=== PATIENT | female | born 1945 | race Caucasian/White ===

== ENCOUNTER 2025-05-14 06:10 | Day surgery (SDC) | payer MEDICARE, SELFPAY ==
[2025-05-07 09:31] VITALS: BMI 25.6
[2025-05-14] VITALS (8 sets, daily range): BP systolic 108–175; BP diastolic 63–79; PULSE 51–100; RESP 14–16; TEMP 37.2; O2SAT 98–100
--- NOTE | ~2025-05-14 | XR_ITS ---
EXAM/PROCEDURE: XR fluoroscopy no charge HISTORY: DIAG/PROG SINGLE BOLUS OPIOID TRIAL COMPARISON: None available. TECHNIQUE: Fluoroscopic spot images for pain service. Fluoroscopy time: 32.6 seconds Dose: 9.30 mGy IMPRESSION: Fluoroscopic guided imaging. No radiologist present. See also procedure/operative notes for complete evaluation. Reviewed, dictated and finalized at location A. Y PAINTER HELPER IMPRESSION: Fluoroscopic guided imaging. No radiologist present. See also proce dure/operative notes for complete evaluation.
--- NOTE | 2025-05-14 06:34 | WPDHPUPDATE1 ---
History and Physical Update Update Date/Time: 05/14/25 06:34 History and Physical has been reviewed, including an updated exam of the patient. There are NO changes in the patient's condition. Risks, benefits, and alternatives have been discussed and questions answered. Patient agrees to proceed with procedure.
--- NOTE | 2025-05-14 06:34 | PM.HPGS ---
History of Present Illness History of Present Illness Consent: Risks, benefits, and alternatives have been discussed and questions answered. Patient agrees to proceed with procedure. Chief complaint: other chronic pain Narrative: Jody Spencer is a 79 year old female with chronic, recalcitrant low back and lower extremity pain secondary to lumbar spondylosis with stenosis, post-laminectomy syndrome who presents as scheduled for epidural opioid bolus trial (pain pump trial) under fluoroscopic guidance using hydromorphone. Review of Systems Review of Systems: Patient denies any new infectious, allergic, cardiopulmonary, neurologic or constitutional symptoms or changes in activity tolerance or exercise capacity including new or progressive SOB/HERNANDEZ, peripheral edema, productive cough, dysuria, nausea/vomiting, diarrhea, weight change, fevers/chills/night sweats, new or progressive neurologic deficit, cognitive or mood changes since last seen, except as documented in the HPI. All systems reviewed & are unremarkable except as noted in HPI and below PMFSH Past Medical History Medical History Osteoporosis Anemia Surgical History Surgical History Status post lumbar and lumbosacral fusion by anterior technique H/O wrist surgery History of left knee surgery Status post medial meniscus repair History of bladder surgery History of breast lump removal H/O section Endometriosis of both ovaries Family History Family History Mother Cancer Father Cancer Hypertension Grandparent Diabetes mellitus Cancer Social History Social History (Updated 04/08/25 @ 14:47 by Loli Escalante MA) Smoking status: Unknown if ever smoked Second hand tobacco smoke exposure: Yes Alcohol intake: unknown Substance use: unknown Substance use type: does not use Living arrangements: alone Spiritual care concerns: No Meds Home Medications and Allergies Home Medications ?Medication ?Instructions ?Recorded ?Confirmed ?Type ascorbic acid (vitamin C) 500 mg 500 mg PO DAILY 04/08/25 05/07/25 History capsule atenolol 25 mg tablet 12.5 mg PO DAILY 04/08/25 05/07/25 History calcium 650 mg-vitamin D3 12.5 1 tablet PO DAILY 04/08/25 05/07/25 History mcg-vitamin K 40 mcg chewable tablet celecoxib 200 mg capsule 200 mg PO DAILY 04/08/25 05/07/25 History Held on 05/07/25. Instructions: .Provider Order cholecalciferol (vitamin D3) 25 25 mcg PO DAILY 04/08/25 05/07/25 History mcg (1,000 unit) capsule glucosamine-chondroitin 250 mg-200 2 tablet PO TID 04/08/25 05/07/25 History mg tablet hydrocodone 5 mg-acetaminophen 325 1 tablet PO DAILY PRN pain 04/08/25 05/07/25 History mg tablet Held on 05/07/25. Instructions: .Provider Order latanoprost 0.005 % eye drops 1 drp ophthalmic (eye) QPM 04/08/25 05/07/25 History mecobalamin (vitamin B12) 500 mcg 500 mcg PO DAILY 04/08/25 05/07/25 History chewable tablet naloxone 4 mg/actuation nasal spray 4 mg intranasal Q2-3M PRN opioid 04/08/25 05/07/25 Rx overdose #2 ea omega-3 700 pv-toa-fgh-ala-fish 1 cap PO DAILY 04/08/25 05/07/25 History oil-flaxseed 320 mg-vit E capsule, rosuvastatin 5 mg tablet 5 mg PO DAILY 04/08/25 05/07/25 History acetaminophen 500 mg tablet 1,000 mg PO DAILY 05/07/25 05/07/25 History (Acetaminophen Extra Strength) Allergies Allergy/AdvReac Type Severity Reaction Status Date / Time adhesive tape Allergy Mild BREAK OUT Verified 05/07/25 09:24 amoxicillin Allergy Mild RASH Verified 05/07/25 09:24 Exam Narrative: The patient's physical exam is essentially unchanged from prior examination on 04/08/2025. Specifically, patient demonstrates normal lung capacity, tidal volume and respiratory rate without wheezes, crackles, rales or rubs. Heart rate and rhythm are regular without murmurs, gallops or rubs. No JVD. Pulses 2+ globally without increasing peripheral edema. AAOx3 with no evidence of confusion, intoxication or altered mental state, NC/AT without acute distress or altered consciousness. Speech, cognition, mood, insight and judgment at baseline and within normal limits. Assessment and Plan Assessment and plan (1) Lumbar post-laminectomy syndrome: Code(s): M96.1 - Postlaminectomy syndrome, not elsewhere classified Status: Acute Assessment and Plan: proceed as planned with single epidural opioid bolus trial (pain pump trial) under fluoroscopic guidance. (2) correction (current) use of opiate analgesic: Code(s): Z79.891 - correction (current) use of opiate analgesic Status: Acute (3) Chronic pain: Code(s): G89.29 - Other chronic pain Status: Acute (4) Lumbosacral spondylosis with radiculopathy: Code(s): M47.27 - Other spondylosis with radiculopathy, lumbosacral region Status: Acute
--- NOTE | 2025-05-14 06:42 | P.OP_ITS ---
Procedure Note - Detailed Date of Procedure 05/14/25 Pre-op Diagnosis other chronic pain Post-op Diagnosis Same Procedure Performed Thoracolumbar Interlaminar Epidural Needle Placement at T11-12 for Single Prognostic Epidural Bolus of Opioid Analgesic (Pump Trial) under Fluoroscopic Guidance with Contrast Control. Surgeon Axel Arceo MD Presser And Shaper Knitted Goods None. Anesthesia Local Description of Procedure INFORMED CONSENT: Risks, benefits and alternatives to the procedure were d iscussed in detail with the patient who expressed explicit understanding and consent to proceed. Patient was informed verbally and in written form regarding the risks associated with the procedure including the low risk of inadvertent dural puncture resulting in CSF leak and subsequent acute or chronic spinal headache, serious systemic or local infection requiring additional surgery, bleeding/bruising or blood clot, allergic reaction, nerve /spinal cord or organ injury resulting in temporary or permanent weakness, paralysis, numbness, pain, deformity or bowel or bladder incontinence, procedural site pain or discomfort, worsening pain and/or mobility, failure to treat and/or disfigurement, as well as the risk of opioid overdose resulting in sedation, cognitive impairment, hypoxia, coma, , or under dose causing withdrawal symptoms or untreated pain. The patient expressed explicit understanding and consent to proceed despite the potential risks with the agreement that potential benefits far outweigh potential for harm. All materials required for the procedure were available prior to procedure start. Site and side were marked prior to procedure and confirmed in the presence of the patient. PROCEDURE IN DETAIL: The patient was brought to the procedural suite and placed in the prone position. Patient was made comfortable with use of pillows under the head/chest, hips and ankles. Appropriate monitoring initiated. Skin overlying the injection site was prepared broadly with ChloraPrep applicator and draped in a sterile manner. Aseptic technique was employed throughout. The endplates of the vertebral body at the site of interest were aligned in the AP view. Slight caudal tilt and ipsilateral oblique angulation was utilized to optimize visualization of the targeted posterior intervertebral foramen at T11-12. Local anesthesia was established by infiltration with approximately 5 mL of 0.5% lidocaine via a 1-1/2 inch 27-gauge needle. A 20-gauge 4-inch Tuohy epidural needle was advanced intermittently until appropriate loss of resistance to air was identified via plastic loss of resistance syringe. Lateral view was used to confirm the appropriate positioning of the needle tip within the posterior epidural space. In the AP view, 2.0 mL of Omnipaque 300 contrast medium was injected after negative aspiration for CSF, blood or other bodily fluid, showing appropriate epidural spread of contrast without evidence of intravascular or intrathecal placement. 1 ml of a 0.25 mg/ml aqueous solution of preservative free hydromorphone labeled for IT/ Epidural use was injected after negative repeat aspiration. Appropriate spread of the injectate was confirmed with washout of previously injected contrast. No parasthesias were elicited. Needle was removed intact and without difficulty. Site was cleaned and sterile bandage was applied. The patient tolerated the procedure well with no evidence of complication. Images were saved and documented in the patient chart. Patient's skin was cleaned and sterile bandage applied. The patient tolerated the procedure well. The patient was transported to the recovery area in stable condition where they were observed and monitored (RR, HR, BP, O2 Sats, Pain level) for an appropriate amount of time prior to discharge (no less than 1 hour), without evidence of complication. After approximately one hour, the patient was evaluated for neurologic deficit, pain relief and side effects with results as below. Patient instructed to remain in the presence of a responsible adult to monitor for the next 72 hours. The patient was instructed to avoid excessive activity for the next 48 hours, including climbing and frequent use of stairs. Showers only for 48 hours. They were instructed not to drive or operate heavy machinery for 72 hours. They are to monitor for pruritus, sedation/confusion, severe headaches, fevers, chills, night sweats, erythema/swelling at the site or any other signs of infection, bleeding/bruising, bowel or bladder changes as well as new pain, weakness or numbness in the upper or lower extremity. Should they notice these changes, they are instructed to call our office immediately or report directly to the nearest Emergency Department if no answer or if after posted office hours. COMPLICATIONS: None COMMENTS: Total dose:0.25 mg hydromorphone. No side effects of nausea, pruritus, somnolence, hallucinations noted. CONTRAST WASTED: 26mL Omnipaque 300. Complications No immediate complications Condition Stable Disposition Same day ( Extended stay greater than 1 hour.) [facility] Billing Surgery - Charge Forward: Surgery Billing
--- NOTE | 2025-05-14 07:39 | SUR.OPER ---
Medication dosed at 0738, wasted 1ml.
== END 2025-05-14 09:16 | disposition home or self-care (01) ==
PROVIDERS: Visit Provider Anesthesiology Pain Medicine
PROC: (CPT 62321; principal; 2025-05-14 07:30)
DX: G89.29 Other chronic pain (principal); M47.27 Other spondylosis with radiculopathy, lumbosacral region; M96.1 Postlaminectomy syndrome, not elsewhere classified
CPT/HCPCS: 62321; 99199

== ENCOUNTER 2025-06-03 11:00 | Outpatient (CLI) | payer MEDICARE, SELFPAY ==
--- NOTE | ~2025-06-03 | XR_ITS ---
EXAMINATION: XR chest 2V 06/03/2025 12:38 INDICATION: Encounter for preprocedural examination PROCEDURE: 2 view chest COMPARISON: No prior studies for comparison. FINDINGS: The lungs are clear. The cardiomediastinal silhouette is within normal limits. There are no pleural effusions. There is no pneumothorax suspected. IMPRESSION: 1: NO ACUTE CARDIOPULMONARY DISEASE. Reviewed, dictated and finalized at location O. TRIC SIGN ASSEMBLER
[2025-06-03 11:27] LABS: Hematocrit 35.9 % (37.0-47.0); Hemoglobin 11.8 g/dL (12.0-15.0); Immature Granulocyte Percent A 0.3 % (0-0.5); Lymphocytes Absolute Auto 1.13 K/mm3 (0.9-3.2); Mean Corpuscular HGB Conc 32.9 g/dl (32-36); Mean Corpuscular Hemoglobin 31.8 pg (26-34); Mean Corpuscular Volume 96.8 fl (80-100); Nucleated Red Blood Cells Absolute Auto 0.000 K/mm3 (0.0-0.012); Nucleated Red Blood Cells Perc 0.0 % (0.0-0.2); Platelet Count Result 248 k/mm3 (150-375); Red Blood Count 3.71 M/mm3 (4.2-5.4); White Blood Count 6.6 K/mm3 (4.5-10.0)
--- NOTE | 2025-06-03 11:36 | ECG_ITS ---
Test Date: 2025-06-03 11:57:25 Measurements Intervals [place] Rate: 59 P: 28 LA: 165 QRS: 12 QRSD: 108 T: 35 QT: 425 QTc: 422 Interpretive Statements SINUS BRADYCARDIA WITH OCCASIONAL VENTRICULAR PREMATURE COMPLEXES BASELINE ARTIFACT- I, II, AVR BORDERLINE ECG No previous ECG available for comparison Electronically Signed On 06-03-2025 22:31:12 PRODUCTION WOOD CRAFTSMAN by Griffin Walker D.O.
--- OUTSIDE RECORDS SUMMARY | 2025-06-03 11:45 | XMS_ITS | Encounter Summary ---
Author Organization [facility] Address [facility] [place] [address] Care Team Providers Care Elevator Builder Name Role Phone Breann Vitale Primary Care Provider [phone] Encounter Details Date Type Department Care Team (Late st Contact Info) Description 05/03/2023 [facility] [address] [place] [address] Breann Vitale PA [address] [place] [address] Diarrhea Social History Tobacco Use Types Packs/Day Years Used Date Smoking Tobacco: Never Passive Smoke Exposure: Never Smokeless Tobacco: Never Comments:Never Smoked Alcohol Use Standard Drinks/Week Comments Not Currently 0 (1 standard drink = 0.6 oz pure alcohol) I may have an average of 1-2 drinks per month AUDIT-C Answer Date Recorded Q1: How often do you have a drink containing alc ohol? Monthly or less 01/21/2020 Average Number of Drinks Not on file 020 Frequency of Binge Drinking Not on file 01/04 PHQ-2 Answer Date Recorded Patient Health Questionnaire-2 Score 0 04/26/2023 Comments No Sex and Gender Information Value Date Recorded Sex Assigned at Female 10/27/2020 4:20 PM CDT Legal Sex Female 7:54 PM CDT Gender Identity Female 10/27/2020 4:20 PM CDT Sexual Orientation Straight 10/27/2020 4: 20 PM CDT documented as of this encounter Functional Status * Are you deaf or do you have serious difficulty hearing Answer Date of Assessment Author Status No 10/05/2022 10:54 AM Radha Arroyo RN Active * Are you blind or do you have serious difficulty seeing, even when wearing glasses? Answer Date of Assessment Author Status No 10/05/2022 10:54 AM Radha Arroyo RN Active * Do you have serious difficulty walking or climbing stairs? Answer Date of Assessment Author Status No 10/05/2022 10:54 AM Radha Arroyo RN Active * Do you have difficulty dressing or bathing? Answer Date of Assessment Author Status No 10/05/2022 10:54 AM Radha Arroyo RN Active * Because of a physical, mental, or emotional condition, do you have difficulty doing errands alone such as visiting a doctor's office or shopping? Answer Date of Assessment Author Status No 10/05/2022 10:54 AM Radha Arroyo RN Active documented as of this encounter Mental Status * Because of a physical, mental, or emotional condition, do you have serious difficulty concentrating, remembering, or making decisions? Answer Entry Date Author Status No 10/05/2022 10:54 AM Radha Arroyo RN Active documented in this encounter Progress Notes * JAYNA Mahmood - 05/04/2023 5:19 PM CST I called pt - she is feeling okay - just having persistent daily diarrhea. There is no blood or mucous, just watery stools. Pt will go for c diff testing - I will contact her with results when available. She will continue to eat bland diet and push fluids - go to ER if concern for dehydration. OLOGIST CHIEF OF BREAST IMAGING documented in this encounter Plan of Treatment Upcoming Encounters Date Type Department Care Team (Late st Contact Info) Description 06/24/2025 10:00 AM RADIOLOGIST CHIEF OF BREAST IMAGING Office Visit [facility] Orthopedic & Sports Medicine - [place] [address] [place] [address] Fahad Brice MD [address] [place] [address] 09/23/2025 10:00 AM CDT Office Visit [facility] Orthopedic & Sports Medicine - [place] [address] [place] [address] Fahad Brice MD [address] [place] [address] documented as of this encounter Goals Goal Patient Goal Type Associated Problems Recent Progress Patient-Stated? Author Safety - demonstrates understanding of home safety measures General No Carlie Marte RN documented as of this encounter Visit Diagnoses Not on filedocumented in this encounter Additional Health Concerns Infection Onset Date Last Indicated Resolved Time Respiratory Rule Out 03/06/2025 03/06/2025 025 1:21 PM CDT Assessment Noted Time PHQ-9 Depression Total Score: 0 01/15/20 21 2:20 PM CDT documented as of this encounter Care Teams Elevator Builder Relationship Specialty Start Date End Date Breann Vitale PA [address] [place] [address] PCP - General PHYSICIAN BOX CAR BRACER 04/11/18 documented as of this encounter
--- OUTSIDE RECORDS SUMMARY | 2025-06-03 11:45 | XMS_ITS | Encounter Summary ---
Author Organization [facility] Address [facility] [place] [address] Care Team Providers Care Willow Machine Tender Name Role Phone Breann Vitale Primary Care Provider [phone] Encounter Details Date Type Department Care Team (Late st Contact Info) Description 09/22/2017 Abstract [facility] Conversion Md, Generic ConversionMD Social History Tobacco Use Types Packs/Day Years Used Date Smoking Tobacco: Never Assessed Comments Unknown Sex and Gender Information Value Date Recorded Sex Assigned at Female 10/27/2020 4:20 PM CDT Legal Sex Female 7:54 PM CDT Gender Identity Female 10/27/2020 4:20 PM CDT Sexual Orientation Straight 10/27/2020 4: 20 PM CDT documented as of this encounter Plan of Treatment Upcoming Encounters Date Type Department Care Team (Late st Contact Info) Description 06/24/2025 10:00 AM ANILINE PRESS WORKER Office Visit [facility] Orthopedic & Sports Medicine [facility] [address] [place] [address] Fahad Brice MD [address] [place] [address] 09/23/2025 10:00 AM CDT Office Visit [facility] Orthopedic & Sports Medicine [facility] [address] [place] [address] Fahad Brice MD [address] [place] [address] documented as of this encounter Visit Diagnoses Not on filedocumented in this encounter Additional Health Concerns Infection Onset Date Last Indicated Resolved Time COVID-19 Rule Out 12/08/2019 12/08/2019 12/09/2019 9:53 PM CDT Respiratory Rule Out 03/06/2025 03/06/2025 025 1:21 PM CDT documented as of this encounter Care Teams Willow Machine Tender Relationship Specialty Start Date End Date Breann Vitale PA [address] [place] [address] PCP - General PHYSICIAN BUSINESS SERVICES ASSISTANT 04/11/18 documented as of this encounter
--- OUTSIDE RECORDS SUMMARY | 2025-06-03 11:45 | XMS_ITS | Encounter Summary ---
Author Organization [facility] Address [facility] [place] [address] Care Team Providers Care Commercial Account Manager Name Role Phone Breann Vitale Primary Care Provider [phone] Encounter Details Date Type Department Care Team (Late st Contact Info) Description 03/25/2009 Abstract [facility] Conversion Md, Generic ConversionMD Social History [...] st Contact Info) Description 06/24/2025 10:00 AM SENIOR C SOFTWARE ENGINEER Office Visit [facility] Orthopedic & Sports Medicine [facility] [address] [place] [address] Fahad Brice MD [address] [place] [address] 09/23/2025 10:00 AM CDT Office Visit [facility] Orthopedic & [facility] [address] [place] [address] Fahad Brice MD [address] [place] [address] documented as of this encounter Visit Diagnoses Not on filedocumented in this encounter Additional Health Concerns Infection Onset Date Last Indicated Resolved Time COVID-19 Rule Out 12/08/2019 12/08/2019 12/09/2019 9:53 PM CDT Respiratory Rule Out 03/06/2025 03/06/2025 025 1:21 PM CDT documented as of this encounter Care Teams Commercial Account Manager Relationship Specialty Start Date End Date Breann Vitale PA [address] [place] [address] PCP - General PHYSICIAN AIRPORT SCREENER 04/11/18 documented as of this encounter
--- OUTSIDE RECORDS SUMMARY | 2025-06-03 11:45 | XMS_ITS | Encounter Summary ---
Author Organization [facility] Address [address] [place] [address] Care Team Providers Care Claim Processor Name Role Phone Breann Vitale Primary Care Provider Encounter Details Date Type Department Care Team (Late st Contact Info) Description 06/16/2023 [employer] [facility] Medical [facility] Orthopedic & Sports Medicine - [place] [address] [place], [place] [id number] Fahad Brice MD [address] [place] [address] My appt June 21 Social History Tobacco Use Types Packs/Day Years [...] Assessment Author Status No 10/05/2022 10:54 AM CDT Radha Vaughn RN Active * Are you blind or do you have serious difficulty seeing, even when wearing glasses? Answer Date of Assessment Author Status No 10/05/2022 10:54 AM LUÍST Radha Vaughn RN Active * Do you have serious difficulty walking or climbing stairs? Answer Date of Assessment Author Status No 10/05/2022 10:54 AM CDT Radha Vaughn RN Active * Do you have difficulty dressing or bathing? Answer Date of Assessment Author Status No 10/05/2022 10:54 AM CDT Radha Vaughn RN Active * Because of a physical, mental, or emotional condition, do you have difficulty doing errands alone such as visiting a doctor's office or shopping? Answer Date of Assessment Author Status No 10/05/2022 10:54 AM CDT Radha Vaughn RN Active documented as of this encounter Mental Status * Because of a physical, mental, or emotional condition, do you have serious difficulty concentrating, remembering, or making decisions? Answer Entry Date Author Status No 10/05/2022 10:54 AM LUÍST Radha Vaughn RN Active documented in this encounter Plan of Treatment Upcoming Encounters Date Type Department Care Team (Late st Contact Info) Description 06/24/2025 10:00 AM DIRECTOR CONSUMER Office Visit [facility] Orthopedic & Sports Medicine [facility] [address] [place] [address] Fahad Brice MD [address] [place] [address] 09/23/2025 10:00 AM CDT Office Visit [facility] Orthopedic & Sports Medicine [facility] [address] [place] [address] Fahad Brice MD [address] [place] [address] documented as of this encounter Goals Goal [...] documented as of this encounter Care Teams Claim Processor Relationship Specialty Start Date End Date Breann Vitale PA [address] [place] [address] PCP - General PHYSICIAN NETWORK SYSTEMS CONSULTANT 04/11/18 documented as of this encounter
--- OUTSIDE RECORDS SUMMARY | 2025-06-03 11:45 | XMS_ITS | Encounter Summary ---
Author Organization [facility] Address [facility] [place] [address] Care Team Providers Care Dog Groomer Name Role Phone Breann Vitale Primary Care Provider [phone] Encounter Details Date Type Department Care Team (Late st Contact Info) Description 06/13/2024 Remit[employer] Message [facility] [place] [address] [id number] [employer], [facility] Provider [facility] Social History Tobacco Use Types Packs/Day Years Used Date Smoking Tobacco: Never Passive Smoke Exposure: Never Smokeless Tobacco: Never Comments:Never Smoked Alcohol Use Standard Drinks/Week Comments Not Currently 1 (1 standard drink = 0.6 oz pure alcohol) I may have an average of 1-2 drinks per month AUDIT-C Answer Date Recorded Q1: How often do you have a drink containing alc ohol? Monthly or less 01/21/2020 Average Number of Drinks Not on file 020 Frequency of Binge Drinking Not on file 01/04 PHQ-2 Answer Date Recorded Patient Health Questionnaire-2 Score 0 02/20/2024 Comments No Sex and Gender Information Value [...] Arroyo RN Active documented in this encounter Plan of Treatment Upcoming Encounters Date Type Department Care Team (Late st Contact Info) Description 06/24/2025 10:00 AM HEDIS ABSTRACTOR Office Visit [facility] Orthopedic & Sports Medicine [facility] [address] [place] [address] Fahad Brice MD [address] [place] [address] 09/23/2025 10:00 AM CDT Office Visit [facility] Orthopedic & Sports Medicine [place] [address] [place] [address] Fahad Brice MD [address] [place] [address] documented as of this encounter Goals Goal [...] documented as of this encounter Care Teams Dog Groomer Relationship Specialty Start Date End Date Breann Vitale PA [address] [place] [address] PCP - General PHYSICIAN LINE DEPARTMENT SUPERVISOR 04/11/18 documented as of this encounter
--- OUTSIDE RECORDS SUMMARY | 2025-06-03 11:45 | XMS_ITS | Encounter Summary ---
Author Organization [facility] - [facility] Address [facility] [place] [address] Care Team Providers Care Zipper Lining Folder Name Role Phone Breann Vitale Primary Care Provider [phone] Encounter Details Date Type Department Care Team (Latest Contact Info) Description 01/22/2021 [facility] Message Enc [facility] - [address], [address] [place] [id number] [place], [facility] Provider pre op instructions Social History Tobacco Use Types Packs/Day Years Used Date Smoking Tobacco: Never Smokeless Tobacco: Never Alcohol Use Standard Drinks/Week Comments Yes 0 (1 standard drink = 0.6 oz pur e alcohol) 2 drinks a month AUDIT-C Answer Date Recorded Q1: How often do you have a drink containing alc ohol? Monthly or less 01/21/2020 Average Number of Drinks Not on file 020 Frequency of Binge Drinking Not on file 01/04 PHQ-2 Answer Date Recorded PHQ-2 Score - If the patient scores above 3, please move on to questions 3-9 0 01/14/2021 Comments No Sex and Gender Information Value Date Recorded Sex Assigned at Female 10/27/2020 4:20 PM CDT Legal Sex Female 7:54 PM CDT Gender Identity Female 10/27/2020 4:20 PM CDT Sexual Orientation Straight 10/27/2020 4: 20 PM CDT COVID-19 Exposure Response Date Recorded In the last month, have you been in contact with someone who was confirmed or suspected to have Coronavirus / COVID-19? No / Unsure 01/21/2021 12:45 PM CDT documented as of this encounter Functional Status * RETIRED Are you deaf or do you have serious difficulty hearing Answer Date of Assessment Author Status No 12/11/2019 5:31 PM CDT Activ e * RETIRED Are you blind or do you have serious difficulty seeing, even when wearing glasses? Answer Date of Assessment Author Status No 12/11/2019 5:31 PM CDT Activ e * Do you have serious difficulty walking or climbing stairs? Answer Date of Assessment Author Status No 12/11/2019 5:31 PM CDT Luiza Berger RN Active * Do you have difficulty dressing or bathing? Answer Date of Assessment Author Status No 12/11/2019 5:31 PM CDT Luiza Berger RN Active * Because of a physical, mental, or emotional condition, do you have difficulty doing errands alone such as visiting a doctor's office or shopping? Answer Date of Assessment Author Status No 12/11/2019 5:31 PM CDT Luiza Berger RN Active documented as of this encounter Mental Status * Because of a physical, mental, or emotional condition, do you have serious difficulty concentrating, remembering, or making decisions? Answer Entry Date Author Status No 12/11/2019 5:31 PM CDT Luiza Berger RN Active documented in this encounter Plan of Treatment Upcoming Encounters Date Type Department Care Team (Late st Contact Info) Description 06/24/2025 10:00 AM RESIDENTIAL INSURANCE INSPECTOR Office Visit [facility] Orthopedic & Sports Medicine [facility] [address] [place] [address] Fahad Brice MD [address] [place] [address] 09/23/2025 10:00 AM CDT Office Visit [facility] [address] [place] [address] Fahad Brice MD [address] [place] [address] documented as of this encounter Visit Diagnoses Not on filedocumented in this encounter Additional Health Concerns Infection Onset Date Last Indicated Resolved Time Respiratory Rule Out 03/06/2025 03/06/2025 025 1:21 PM CDT Assessment Noted Time PHQ-9 Depression Total Score: 0 01/15/20 21 2:20 PM CDT documented as of this encounter Care Teams Zipper Lining Folder Relationship Specialty Start Date End Date Breann Vitale PA [address] [place] [address] PCP - General PHYSICIAN DISTRIBUTED ENERGY SYSTEMS CONSULTANT 04/11/18 documented as of this encounter
--- OUTSIDE RECORDS SUMMARY | 2025-06-03 11:45 | XMS_ITS | Encounter Summary ---
Author Organization [facility] Address [facility] [place] [address] Care Team Providers Care Terminal Computer Operator Name Role Phone Breann Vitale Primary Care Provider [phone] Encounter Details Date Type Department Care Team (Late st Contact Info) Description 11/16/2024 [facility] [address] [place] [address] Breann Vitale PA [address] [place] [address] Pain Meds Social History Tobacco Use Types Packs/Day Years [...] Date Recorded Patient Health Questionnaire-2 Score 0 10/15/2024 Comments No Sex and Gender Information Value [...] Date Author Status No 10/05/2022 10:54 AM CDT Radha Vaughn RN Active documented in this encounter Progress Notes * Marie Acevedo RN - 11/19/2024 8:13 AM CDT [facility] by PCP. MARIE ACEVEDO RN 11/19/2024 documented in this encounter Plan of Treatment Upcoming Encounters Date Type Department Care Team (Late st Contact Info) Description 06/24/2025 10:00 AM SENIOR GAME DEVELOPER Office Visit [facility] Medical [facility] Orthopedic & Sports Medicine [place] [address] [place] [address] Fahad Brice MD [address] [place] [address] 09/23/2025 10:00 AM CDT Office Visit [facility] Medical Group Orthopedic & Sports Medicine - [place] [address] [place] [address] Fahad Brice MD [address] [place] [address] documented as of this encounter Goals Goal [...] documented as of this encounter Care Teams Terminal Computer Operator Relationship Specialty Start Date End Date Breann Vitale PA [address] [place] [address] PCP - General PHYSICIAN LICENSED ACUPUNCTURIST 04/11/18 documented as of this encounter
--- OUTSIDE RECORDS SUMMARY | 2025-06-03 11:45 | XMS_ITS | Encounter Summary ---
Author Organization [facility] Address [address] [place] [address] Care Team Providers Care Maintenance Supervisor 2Nd Shift Name Role Phone Breann Vitale Primary Care Provider [phone] Encounter Details Date Type Department Care Team (Late st Contact Info) Description 2024 [facility] [address] [place] [address] [employer], [facility] Provider Follow up Lab Results Social History Tobacco Use Types Packs/Day Years [...] Date Recorded Patient Health Questionnaire-2 Score 0 11/21/2024 Comments No Sex and Gender Information Value [...] Assessment Author Status No 10/05/2022 10:54 AM CDRadha Nichole RN Active * Are you blind or [...] st Contact Info) Description 06/24/2025 10:00 AM DISPATCHER RADIO Office Visit [facility] Orthopedic & Sports Medicine [facility] [address] [place] [address] Fahad Brice MD [address] [place] [address] 09/23/2025 10:00 AM CDT [facility] [address] [place] [address] Fahad Brice MD [address] [place] [address] documented as of this encounter Goals Goal [...] documented as of this encounter Care Teams Maintenance Supervisor 2Nd Shift Relationship Specialty Start Date End Date Breann Vitale PA [address] [place] [address] PCP - General PHYSICIAN DISTRICT SALES REPRESENTATIVE 04/11/18 documented as of this encounter
--- OUTSIDE RECORDS SUMMARY | 2025-06-03 11:45 | XMS_ITS | Encounter Summary ---
Author Organization [facility] Address [facility] [place] [address] Care Team Providers Care Stripper Opaquer Name Role Phone Breann Vitale Primary Care Provider [phone] Encounter Details Date Type Department Care Team (Late st Contact Info) Description 03/20/2021 Prep for Procedure [facility] [place] [address] Paco Tariq MD [address] [place] [address] Anesthesia Record Procedure Summary Procedure Name Responsible Anesthesiologist Anesthesia Start Time Anesthesia Stop Time REMOVAL HARDWARE L5, S1 PEDICLE SCREWS AND SHA (Spine Lumbar) Leyla Martin MD 03/31/21 0743 03/31/21 0900 Events Date Time Event Comment 03/31/2021 0654 AN RIGGER HELPER Prepped 0743 An Start Patient ID and consent checked and patient reassessed. 0744 An Start Data 0749 Preoxygenation 0751 An Induction The patient was reevaluated immediately before moderate or deep sedation use and before anesthesia induction. 0754 An Intubation 0802 Anesthesia Ready 0822 0847 An Emergence 0854 An Extubation 0854 Face Mask Applied 0857 an stop data 0900 Post Anesthetic Care Handoff I completed my handoff to the receiving nurse during which we: 1. Identified the patient 2. Identified the responsible provider 3. Reviewed the pertinent medical history 4. Discussed the surgical course 5. Reviewed intra-op anesthesia management and issues during anesthesia 6. Set expectations for post-procedure period 7. Allowed opportunity for questions and acknowledgement of understanding. 0900 An Stop Meds * Agents No agents on file. * Blood No blood administrations on file. Lines, Drains, and Airways Type Details Placement Removal Peripheral IV Placement Date: 03/31/21; Placement Time: 0630; Placed Outside of This Facility?: No; Size: 18 G; Orientation: Left, Posterior; Location: Forearm; Site Prep: Chlorhexidine; Local Anesthetic: None; Insertion attempts: 1; Ultrasound-guided Placement?: No; Patient Tolerance: Tolerated well; Removal Date: 04/01/21; Removal Time: 1338; Removal Reason: Patient Discharged 03/31/21 06 by Cristi Avila RN 04/01/211337 by Cesar Cardoza RN ETT Placement Date: 03/31/21; Placement Time: 0754; Placed Outside of This Facility?:No; Mask Ventilate: Prior to intubation, Easy; Size (mm) : 7; Endotracheal: Oral, Stylet used; Blade Type: MAC 3; Placement Method: Direct Laryngoscopy (blade type in comment), Cricoid pressure; View Grade: 1; Viewable Anatomy: Epiglottis, Arytenoid, Vocal cords; Insertion Attempts: 1; Placement Verified By: Capnography, Auscultation, Chest Rise; Placed By: Other (Comment) (LEE ANN Junior); Extubation Assessment: Suctioned, Alert, Tolerated well, Patient spontaneously breathing, Able to follow simple commands, Deep breathes w/equal chest movements, Atraumatic, Able to swallow; Removal Date: 03/31/21; Removal Time: 0854; Removal Person: Other (Comment) (lee ann finnegan); Removal Reason: End of Case 03/31/21 0754 by Samy Arciniega CRNA 03/31/21 0854 by Samy Arciniega CRNA Closed/Suction Drain 03/31/21; 0825; 1; Inferior; Back; Bulb; 10 Fr.; [id number]; [id number]; 11/03/25; End of Case 03/31/21 0825 by Farhan Pressley RN 04/01/21 1338 by Cesar Cardoza, agricultural equipment mechanic/Incision 03/31/21; 0832; Surg ical Wound; Back; Incision: sutures, yahir, aquacel Ag; 04/01/21; 1647 03/31/21 0832 by Farhan Pressley RN 04/01/21 1647 by Automatic Discharge Provider documented in this encounter Social History Tobacco Use Types Packs/Day Years [...] have Coronavirus / COVID-19? No / Unsure 03/20/2021 9:44 AM CDT documented as of this encounter Functional [...] st Contact Info) Description 06/24/2025 10:00 AM PHYSICAL THERAPY TECHNICIAN Office Visit [facility] Orthopedic & Sports [facility] [address] [place] [address] Fahad Brice MD [address] [place] [address] 09/23/2025 10:00 AM CDT Office Visit [facility] [address] [place] [address] Fahad Brice MD [address] [place] [address] documented as of this encounter Results * PTT, PARTIAL THROMBOPLASTIN TIME (03/26/2021 12:45 PM CDT) PTT 27.7 25.1 - 36.5 SEC 03/26/2021 1:33 PM CDT [facility] 03/26/2021 12:4 5 PM CDT us Paco Tariq MD LABORATORY Final Resul t [facility] [address] [place] [address], * PROTIME/INR, VENOUS (03/26/2021 12:45 PM CDT) PROTIME 12.0 10.2 - 12.9 SEC 03/26/2021 1:33 PM CDT [facility] INR 1.0 03/26/2021 1:33 PM CDT [facility] Comment: Recommended INR Therapeutic Goals: 2.0-3.0 Routine Therapy 2.5-3.5 Mechanical Prosthetic Valves (High Risk) 03/26/2021 12:4 5 PM CDT us Paco Tariq MD LABORATORY Final Resul t Performing Organization Address City/[facility]/ZIP Co de Phone Number [facility] [address] [place] [address], [place] [phone] * TYPE & SCREEN (03/26/2021 12:45 PM CDT) ABO/RH A NEGATIVE 03/26/2021 3:17 PM CDT [facility] ANTIBODY SCREEN NEGATIVE 03/26/2021 3:17 PM CDT [facility] SAMPLE EXPIRATION 04/03/2021,2 359 03/31/2021 7:39 AM CDT [facility] COMMENT NO HISTORY OF TRANSFUSIONS , OR ANTIBODIES, NEW SPECIMEN NOT NEEDED 03/31/2021 7:39 AM CDT [facility] 03/26/2021 12:4 5 PM CDT us Paco Tariq MD BLOOD BANK TEST ORDERABLES Final Result [facility] [address] [place] [address], [place] [phone] * (ABNORMAL) BASIC METABOLIC PANEL (03/26/2021 12:45 PM CDT) GLUCOSE 82 70 - 99 MG/DL 03/26/2021 1:50 PM T [facility] BUN 26(H) 7 - 18 MG/DL 03/26/2021 1:50 PM T [facility] CREATININE S/P/B 1.15(H) 0.55 - 1.02 MG/DL 03/26/2021 1:50 PM T [facility] SODIUM S/P/B 138 136 - 145 MMOL/L 03/26/2021 1:50 PM T [facility] POTASSIUM S/P/B 4.7 3.5 - 5.1 MMOL/L 03/26/2021 1:50 PM T [facility] CHLORIDE S/P/B 106 100 - 108 MMOL/L 03/26/2021 1:50 PM T [facility] CO2 32.5(H) 21 - 32 MMOL/L 03/26/2021 1:50 PM T [facility] CALCIUM S/P/B 9.8 8.5 - 10.1 MG/DL 03/26/2021 1:50 PM T [facility] ANION GAP NOT CALCULATED 5 - 15 MMOL/L 03/26/2021 1:50 PM [facility] BUN CREATININE RATIO 22.6 6 - 26 03/26/2021 1:50 PM [facility] EGFR NON-AFR. AMER. 47(L) >90 ML/MIN/1. 73 M2 03/26/2021 1:50 PM [facility] EGFR AFR. AMER. 55(L) >90 ML/MIN/1. 73 M2 03/26/2021 1:50 PM [facility] Comment: NOTE: eGFR is not calculated for patients <18 years of age. This is an estimated GFR (CKD EPI) and should not be used for calculating drug doses. 03/26/2021 12:4 5 PM CDT Paco Tariq MD LABORATORY Final Resul t [facility] [address] [place] [address], [place] [phone] * (ABNORMAL) CBC W/DIFF AUTOMATED (03/26/2021 12:45 PM CDT) WBC 4.7 4.5 - 11.0 x10'3/uL 03/26/2021 1:07 PM CDT [facility] RBC 3.69(L) 4.20 - 5.40 x10'6/uL 03/26/2021 1:07 PM CDT [facility] HGB 11.7(L) 12.0 - 16.0 G/DL 03/26/2021 1:07 PM CDT [facility] HCT 36.2(L) 38.0 - 48.0 % 03/26/2021 1:07 PM CDT [facility] MCV 98.1 81.0 - 99.0 FL 03/26/2021 1:07 PM CDT [facility] MCH 31.7(H) 27.0 - 31.0 PG 03/26/2021 1:07 PM CDT [facility] MCHC 32.3 32.0 - 36.0 G/DL 03/26/2021 1:07 PM CDT [facility] RDW 12.0 11.5 - 14.5 % 03/26/2021 1:07 PM CDT [facility] PLT 241 130 - 400 x10'3/uL 03/26/2021 1:07 PM CDT [facility] MPV 10.7 9.3 - 12.2 FL 03/26/2021 1:07 PM CDT [facility] DIFFERENTIAL TYPE AUTOMATED DIFFERENTIAL 03/26/2021 1:07 PM CDT [facility] NEUTROPHILS % 59.8 % 03/26/2021 1:07 PM CDT [facility] LYMPHOCYTES % 27.4 % 03/26/2021 1:07 PM CDT [facility] MONOCYTES % 9.3 % 03/26/2021 1:07 PM CDT [facility] EOSINOPHILS 2.5 % 03/26/2021 1:07 PM CDT [facility] BASOPHILS 0.6 % 03/26/2021 1:07 PM CDT [facility] IMMATURE GRANS % 0.4 % 03/26/20 1:07 PM CDT [facility] ABS. NEUTROPHILS TOTAL 2.81 1.80 - 7.70 x10'3/uL 03/26/2021 1:07 PM CDT [facility] ABS. LYMPHOCYTES 1.29 1.00 - 4.80 x10'3/uL 03/26/2021 1:07 PM CDT [facility] ABS. MONOCYTES 0.44 0.24 - 0.86 x10'3/uL 03/26/2021 1:07 PM CDT [facility] ABS. EOSINOPHILS 0.12 0.04 - 0.36 x10'3/uL 03/26/2021 1:07 PM CDT [facility] ABS. BASOPHILS 0.03 0.01 - 0.08 x10'3/uL 03/26/2021 1:07 PM T [facility] ABS. IMMATURE GRANULOCYTES 0.02 0.00 - 0.49 x10'3/uL 03/26/2021 1:07 PM T [facility] 03/26/2021 12:4 5 PM CDT us Paco Tariq MD LABORATORY Final Resul t [facility] [address] [place] [address], documented in this encounter Visit Diagnoses Diagnosis Painful orthopaedic hardware- Primary documented in this encounter Additional Health Concerns Infection Onset Date Last Indicated Resolved Time Respiratory Rule Out 03/06/2025 03/06/2025 025 1:21 PM CDT Assessment Noted Time PHQ-9 Depression Total Score: 0 01/15/20 21 2:20 PM CDT documented as of this encounter Care Teams Stripper Opaquer Relationship Specialty Start Date End Date Breann Vitale PA [address] [place] [address] PCP - General PHYSICIAN MANAGER EPIC 04/11/18 documented as of this encounter
--- OUTSIDE RECORDS SUMMARY | 2025-06-03 11:45 | XMS_ITS | Encounter Summary ---
Author Organization [facility] Address [facility] [place] [address] Care Team Providers Care Tank Systems Maintainer Name Role Phone Breann Vitale Primary Care Provider [phone] Encounter Details Date Type Department Care Team (Late st Contact Info) Description 06/25/2016 Abstract [facility] Clinics Conversion Md, Generic ConversionMD Social History [...] st Contact Info) Description 06/24/2025 10:00 AM VIDEO GAME REPAIR TECHNICIAN Office Visit [facility] Orthopedic & Sports Medicine [facility] [address] [place] [address] Fahad Brice MD [address] [place] [address] 09/23/2025 10:00 AM CDT Office Visit [facility] Orthopedic & Sports Medicine [facility] [address] [place] [address] Fahad Brice MD [address] [place] [address] documented as of this encounter Visit Diagnoses Not on filedocumented in this encounter Additional Health Concerns Infection Onset Date Last Indicated Resolved Time COVID-19 Rule Out 12/08/2019 12/08/2019 12/09/2019 9:53 PM CDT Respiratory Rule Out 03/06/2025 03/06/2025 025 1:21 PM CDT documented as of this encounter Care Teams Tank Systems Maintainer Relationship Specialty Start Date End Date Breann Vitale PA [address] [place] [address] PCP - General PHYSICIAN CHILD'S NURSE 04/11/18 documented as of this encounter
--- OUTSIDE RECORDS SUMMARY | 2025-06-03 11:45 | XMS_ITS | Encounter Summary ---
Author Organization [facility] Address Critical access hospital[address] [place] [address] Care Team Providers Care Chiropractor Assistant Name Role Phone Breann Vitale Primary Care Provider [phone] Encounter Details Date Type Department Care Team (Late st Contact Info) Description 08/16/2017 Abstract [facility] Clinics Conversion Md, Generic ConversionMD Social [...] st Contact Info) Description 06/24/2025 10:00 AM DIGITAL ACCOUNT DIRECTOR Office Visit [facility] Orthopedic & Sports Medicine [facility] [address] [place] [address] Fahad Brice MD [address] [place] [address] 09/23/2025 10:00 AM CDT Office Visit [facility] Orthopedic & Sports Medicine [facility] [address] [place] [address] Fahad Brice MD [address] [place] [address] documented as of this encounter Visit Diagnoses Not on filedocumented in this encounter Additional Health Concerns Infection Onset Date Last Indicated Resolved Time COVID-19 Rule Out 12/08/2019 12/08/2019 12/09/2019 9:53 PM CDT Respiratory Rule Out 03/06/2025 03/06/2025 025 1:21 PM CDT documented as of this encounter Care Teams Chiropractor Assistant Relationship Specialty Start Date End Date Breann Vitale PA [address] [place] [address] PCP - General PHYSICIAN UI SOFTWARE ENGINEER 04/11/18 documented as of this encounter
--- OUTSIDE RECORDS SUMMARY | 2025-06-03 11:45 | XMS_ITS | Clinical Summary ---
Author Organization [facility] Address [address] [place] [address] Care Team Providers Care Bottle Label Inspector Name Role Phone Breann Vitale Primary Care Provider [phone] Allergies Active Allergy Reactions Criticality Noted Date Comments Amoxicillin Active Problems Problem Noted Date Diagnosed Date Pain in shoulder 10/01/2016 Hyperlipidemia 06/15/2013 Never smoked tobacco 06/05/2012 Abnormal liver function tests 06/05/2012 Encounters Date Type Department Care Team Description 05/16/2025 10:40 AM CODE ENFORCEMENT INSPECTOR - 05/16/2025 11:59 PM CODE ENFORCEMENT INSPECTOR Hospital Encounter [facility] [address] [place] [address] Screening mammogram, encounter for Discharge Disposition: Discharge to home or self care from Last 3 Months Surgical History Surgery Date Site/Laterality Comments HYSTERECTOMY age 42 BREAST BIOPSY Left Family History Medical History Relation Name Comments Hypertension Father Family history of hypertension - (Added by TW Conv) Breast cancer Mother Cancer Mother Family history of malignant neoplasm - (Added by TW Conv) Diabetes Other Family history of diabetes mellitus - Relation: Grandmother (Added by TW Conv) Relation Name Status Comments Father Mother Other Social History Tobacco Use Types Packs/Day Years Used Date Smoking Tobacco: Never Comments No Sex and Gender Information Value Date Recorded Sex Assigned at Not on file Legal Sex Female 1:49 AM CODE ENFORCEMENT INSPECTOR Gender Identity Not on file Sexual Orientation Not on file Obstetrics History Para Term AB IAB SAB Ectopic Multiple Livin g Live Births 1 1 1 Date Outcome GA Total Labor Labor/2nd/3rd Weight Sex Type Anes PTL Maria L A1 A5 Name Clin Term Last Filed Vital Signs Vital Sign Reading Time Taken Comments Blood Pressure 108/65 01/06/2016 9:21 AM CDT Pulse 56 01/06/2016 9:21 AM CDT Temperature - - Respiratory Rate - - Oxygen Saturation - - Inhaled Oxygen Concentration - - Weight 70.8 kg (156 lb) 01/06/2016 9:21 AM CDT Height 165.7 cm (5' 5.25) 01/06/2016 9:21 AM CD T Body Mass Index 25.76 01/06/2016 9:21 AM CDT Plan of Treatment Health Maintenance Due Date Last Done Comments Depression Screening 1945 Fall Risk Assessment 1945 Hepatitis C Screening 1945 Hepatitis B Screening 12/09/1965 Well Visit 65+ 12/09/2012 Covid-19 Vaccine (2024-2 6 season) 2025 07/26/2022, 05/14/2021, 08/06/2020, Additional history exists Osteoporosis Screening-Bone Density Scan 10/30/2026 10/30/2024, 08/13/2022 DTaP/Tdap/Td Vaccine (3 - Td or Tdap) 07/26/2032 07/26/2022, 09/02/2011 Pneumococcal vaccine 65+ Completed 04/21/2015, 01/04 Zoster Vaccine Completed 04/20/2019, 01/04, 03/28/2012 Influenza Vaccine Completed 04/17/2025, , 04/02/2020, Additional history exists Breast Cancer Screening-Mammogram Discontinued 05/16/2025, 03/08/2024, 12/27/2022, Additional history exists Procedures Procedure Name Priority Date/Time Associated Diagnosis Comments SCREENING MAMMOGRAM BILATERAL W BRYAN Schedule Routine, Read Routine (OP Routine) 05/16/2025 10:58 AM CODE ENFORCEMENT INSPECTOR Screening mammogram, encounter for from Last 3 Months Results * Screening Mammogram Bilateral W Bryan (05/16/2025 10:58 AM CODE ENFORCEMENT INSPECTOR) Anatomical Region Laterality Modality Breast Bilateral Mammography Impressions 05/16/2025 1:26 PM CODE ENFORCEMENT INSPECTOR Right 1) Post-Surgical Finding: Right breast post-surgical finding. Left No evidence of malignancy. OVERALL BI-RADS FINAL ASSESSMENT: 2 - Benign RECOMMENDATION: Recommend bilateral annual screening mammography. Narrative 05/16/2025 1:26 PM CODE ENFORCEMENT INSPECTOR EXAMINATION: Screening Mammogram Bilateral W Bryan: 05/16/2025 COMPARISON: Relevant prior studies available at the time of interpretation were reviewed, including the most recent mammogram on: 03/08/2024. TECHNIQUE: Mammography was performed with 2D and 3D digital breast tomosynthesis (DBT) images. CAD was utilized. BREAST PARENCHYMAL COMPOSITION: There are scattered areas of fibroglandular density. FINDINGS: Right 1) Post-Surgical Finding: There are post-surgical findings in the right breast. Compared to previous imaging, there are no significant changes. Left There is no suspicious mass, calcification, or architectural distortion. us Self Screening Mammogram IMG MAMMO PROCEDURES Fi nal Result from Last [address] [facility] MEDICARE ADVANTAGE [facility] MEDICARE ADVANTAGE [facility] MEDICARE ADVANTAGE Care Teams Bottle Label Inspector Relationship Specialty Start Date End Date Breann Vitale PA [address] [place] [address] PCP - General 02/27/20
--- OUTSIDE RECORDS SUMMARY | 2025-06-03 11:45 | XMS_ITS | Encounter Summary ---
Author Organization [facility] Address Counts include 234 beds at the [facility] [place] [address] Care Team Providers Care Pickling Grader Name Role Phone Breann Vitale Primary Care Provider [phone] Encounter Details Date Type Department Care Team (Late st Contact Info) Description 06/15/2023 [employer] [address] [place] [address] Breann Vitale PA [address] [place] [address] Covid Test Social History Tobacco Use Types Packs/Day Years [...] encounter Progress Notes * JAYNA Mahmood - 06/15/2023 4:32 PM CST I called pt - she is going to take paxlovid to tx . I advised her to stop her rosuvastatin while onthe paxlovid. Monitor for any worsening in sx - call or come in if any problems. CUTTER documented in this encounter Plan of Treatment Upcoming Encounters Date Type Department Care Team (Late st Contact Info) Description 06/24/2025 10:00 AM REAM CUTTER Office Visit [facility] Orthopedic & Sports Medicine - [place] [address] [place] [address] Fahad Brice MD [address] [place] [address] 09/23/2025 10:00 AM CDT Office Visit [facility] - [place] [address] [place] [address] Fahad Brice MD [address] [place] [address] documented as of this encounter Goals Goal [...] documented as of this encounter Care Teams Pickling Grader Relationship Specialty Start Date End Date Breann Vitale PA [address] [place] [address] PCP - General PHYSICIAN RESIDENTIAL SUBCONTRACTOR 04/11/18 documented as of this encounter
--- OUTSIDE RECORDS SUMMARY | 2025-06-03 11:45 | XMS_ITS | Encounter Summary ---
Author Organization [facility] Address [facility] [place] [address] Care Team Providers Care General Clerk Name Role Phone Breann Vitale Primary Care Provider [phone] Encounter Details Date Type Department Care Team (Late st Contact Info) Description 05/04/2016 Abstract [facility] Clinics Conversion Md, Generic ConversionMD [...] st Contact Info) Description 06/24/2025 10:00 AM PROGRAMMER ANALYST HEALTH IT Office Visit [facility] Orthopedic & Sports Medicine [facility] [address] [place] [address] Fahad Brice MD [address] [place] [address] 09/23/2025 10:00 AM CDT Office Visit [facility] Orthopedic & Sports Medicine [facility] [address] [place] [address] Fahad Brice MD [address] [place] [address] documented as of this encounter Visit Diagnoses Not on filedocumented in this encounter Additional Health Concerns Infection Onset Date Last Indicated Resolved Time COVID-19 Rule Out 12/08/2019 12/08/2019 12/09/2019 9:53 PM CDT Respiratory Rule Out 03/06/2025 03/06/2025 025 1:21 PM CDT documented as of this encounter Care Teams General Clerk Relationship Specialty Start Date End Date Breann Vitale PA [address] [place] [address] PCP - General PHYSICIAN SAS ETL DEVELOPER 04/11/18 documented as of this encounter
--- OUTSIDE RECORDS SUMMARY | 2025-06-03 11:45 | XMS_ITS | Encounter Summary ---
Author Organization [facility] Address [address] [place] [address] Care Team Providers Care Personnel Arbitrator Name Role Phone Breann Vitale Primary Care Provider [phone] Encounter Details Date Type Department Care Team (Late Contact Info) Description 12/06/2019 Prep for Procedure [facility] Pre-Admission [place] [address] Etienne Wolf MD Social History Tobacco Use Types Packs/Day Years Used Date Smoking Tobacco: Never Smokeless Tobacco: Never Alcohol Use Standard Drinks/Week Comments Yes 0 (1 standard drink = 0.6 oz pur e alcohol) 2 drinks a month Comments No Sex and Gender Information Value [...] have Coronavirus / COVID-19? No / Unsure 12/06/2019 11:44 AM CDT documented as of this encounter Plan of Treatment Upcoming Encounters Date Type Department Care Team (Late Contact Info) Description 06/24/2025 10:00 AM MILL LABORER Office Visit [facility] Orthopedic & Sports Medicine - [place] [address] [place] [address] Fahad Brice MD [address] [place] [address] 09/23/2025 10:00 AM CDT Office Visit [facility] Orthopedic & Sports Medicine - [address] [place] [address] Fahad Brice MD [address] [place] [address] documented as of this encounter Results * PRE-SURGICAL/PRE-PROCEDURE CORONAVIRUS (COVID 19) (12/08/2019 11:53 AM CDT) CORONAVIRUS SARS COV 2 PCR (RESP) NOT DETECTED NOT DETECTED 12/09/2019 9:53 PM CDT [facility] [employer] [facility] Comment: A Not Detected (negative) test result for this test means that SARS- CoV-2 RNA was not present in the specimen above the limit of detection. A negative result does not rule out the possibility of COVID-19 and should not be used as the sole basis for treatment or patient management decisions. If COVID-19 is still suspected, based on exposure history together with other clinical findings, re-testing should be considered in consultation with public health authorities. Laboratory test results should always be considered in the context of clinical observations and epidemiological data in making a final diagnosis and patient management decisions. Please review the Fact Sheets and FDA authorized labeling available for health care providers and patients using the following websites: https://www.[employer].com/home/Covid-19/HCP/NAAT/fact-sheet2 https://www.[employer] Style/home/Covid-19/Patients/NAAT/ fact-sheet2 This test has been authorized by the FDA under an Emergency Use Authorization (EUA) for use by authorized laboratories. Due to the current public health emergency, [facility] is receiving a high volume of samples from a wide variety of swabs and media for COVID-19 testing. In order to serve patients during this public health crisis, samples from appropriate clinical sources are being tested. Negative test results derived from specimens received in non-commercially manufactured viral collection and transport media, or in media and sample collection kits not yet authorized by FDA for COVID-19 testing should be cautiously evaluated and the patient potentially subjected to extra precautions such as additional clinical monitoring, including collection of an additional specimen. Methodology: Nucleic Acid Amplification Test (NAAT) includes PCR or TMA Additional information about COVID-19 can be found at the [employer] website: www.[employer]/Covid19. Test performed at [facility] [employer] [place] [address] [place] [address] Director: MILTON ROSS DO,MPH NASOPHARYNGEAL SWAB / Unknown 12/08/2019 11:53 AM CDT us Etienne Wolf MD MICROBIOLOGY - [facility] Final Result [employer] [address] [address] documented in this encounter Visit Diagnoses Diagnosis Pre-op exam- Primary Preoperative examination, unspecified documented in this encounter Additional Health Concerns Infection Onset Date Last Indicated Resolved Time COVID-19 Rule Out 12/08/2019 12/08/2019 12/09/2019 9:53 PM CDT Respiratory Rule Out 03/06/2025 03/06/2025 025 1:21 PM CDT documented as of this encounter Care Teams Personnel Arbitrator Relationship Specialty Start Date End Date Breann Vitale PA [address] [place] [address] PCP - General PHYSICIAN POWER PRESS SUPERVISOR 04/11/18 documented as of this encounter
--- OUTSIDE RECORDS SUMMARY | 2025-06-03 11:45 | XMS_ITS | Encounter Summary ---
Author Organization [facility] Address [facility] [place] [address] Care Team Providers Care Diesel Truck Crane Operator Name Role Phone Breann Vitale Primary Care Provider [phone] Encounter Details Date Type Department Care Team (Late st Contact Info) Description 03/05/2025 [employer] [address] [place] [address] Breann Vitale PA [address] [place] [address] Diarrea Social History Tobacco Use Types Packs/Day Years [...] Date Recorded Patient Health Questionnaire-2 Score 0 03/06/2025 Comments No Sex and Gender Information Value [...] st Contact Info) Description 06/24/2025 10:00 AM ASSOCIATE PROGRAM MANAGER Office Visit [facility] Orthopedic & Sports Medicine [facility] [address] [place] [address] Fahad Brice MD [address] [place] [address] 09/23/2025 10:00 AM CDT Office Visit [facility] [address] [place] [address] Fahad Brice MD [address] [place] [address] documented as of this encounter Goals Goal [...] documented as of this encounter Care Teams Diesel Truck Crane Operator Relationship Specialty Start Date End Date Breann Vitale PA [address] [place] [address] PCP - General PHYSICIAN TRAVEL SPECIALIST 04/11/18 documented as of this encounter
--- OUTSIDE RECORDS SUMMARY | 2025-06-03 11:45 | XMS_ITS | Encounter Summary ---
Author Organization [facility] Address [facility] [place] [address] Care Team Providers Care Laborer Operator Name Role Phone Breann Vitale Primary Care Provider [phone] Encounter Details Date Type Department Care Team (Late st Contact Info) Description 10/22/2011 Abstract [facility] Clinics Conversion Md, Generic ConversionMD [...] st Contact Info) Description 06/24/2025 10:00 AM TARE MAN Office Visit [facility] Orthopedic & Sports Medicine [facility] [address] [place] [address] Fahad Brice MD [address] [place] [address] 09/23/2025 10:00 AM CDT Office Visit [facility] Orthopedic & Sports Medicine [facility] [address] [place] [address] Fahad Brice MD [address] [place] [address] documented as of this encounter Visit Diagnoses Not on filedocumented in this encounter Additional Health Concerns Infection Onset Date Last Indicated Resolved Time COVID-19 Rule Out 12/08/2019 12/08/2019 12/09/2019 9:53 PM CDT Respiratory Rule Out 03/06/2025 03/06/2025 025 1:21 PM CDT documented as of this encounter Care Teams Laborer Operator Relationship Specialty Start Date End Date Breann Vitale PA [address] [place] [address] PCP - General PHYSICIAN SENIOR PROJECT MANAGER 04/11/18 documented as of this encounter
--- OUTSIDE RECORDS SUMMARY | 2025-06-03 11:45 | XMS_ITS | Encounter Summary ---
Author Organization [facility] Address [facility] [place] [address] Care Team Providers Care Manager New Product Name Role Phone Breann Vitale Primary Care Provider [phone] Encounter Details Date Type Department Care Team (Late st Contact Info) Description 04/13/2016 Abstract [facility] Conversion Md, Generic ConversionMD Social History [...] st Contact Info) Description 06/24/2025 10:00 AM TRANSFUSION AIDE Office Visit [facility] Orthopedic [facility] [address] [place] [address] Fahad Brice MD [address] [place] [address] 09/23/2025 10:00 AM CDT Office Visit [facility] Orthopedic [facility] Sports [facility] [address] [place] [address] Fahad Brice MD [address] [place] [address] documented as of this encounter Visit Diagnoses Not on filedocumented in this encounter Additional Health Concerns Infection Onset Date Last Indicated Resolved Time COVID-19 Rule Out 12/08/2019 12/08/2019 12/09/2019 9:53 PM CDT Respiratory Rule Out 03/06/2025 03/06/2025 025 1:21 PM CDT documented as of this encounter Care Teams Manager New Product Relationship Specialty Start Date End Date Breann Vitale PA [address] [place] [address] PCP - General PHYSICIAN BEADING MACHINE OPERATOR 04/11/18 documented as of this encounter
--- OUTSIDE RECORDS SUMMARY | 2025-06-03 11:46 | XMS_ITS | Encounter Summary ---
Author Organization [facility] Address [facility] [place] [address] Care Team Providers Care Fourdrinier Operator Name Role Phone Breann Vitale Primary Care Provider Encounter Details Date Type Department Care Team (Late st Contact Info) Description 10/11/2011 Abstract [facility] Clinics Conversion Md, Generic ConversionMD Social [...] st Contact Info) Description 06/24/2025 10:00 AM VEGETABLE II FARMWORKER Office Visit [facility] Orthopedic & Sports Medicine [facility] [address] [place] [address] Fahad Brice MD [address] [place] [address] 09/23/2025 10:00 AM CDT Office Visit [facility] Orthopedic & Sports Medicine [facility] [address] [place] [address] Fahad Brice MD [address] [place] [address] documented as of this encounter Visit Diagnoses Not on filedocumented in this encounter Additional Health Concerns Infection Onset Date Last Indicated Resolved Time COVID-19 Rule Out 12/08/2019 12/08/2019 12/09/2019 9:53 PM CDT Respiratory Rule Out 03/06/2025 03/06/2025 025 1:21 PM CDT documented as of this encounter Care Teams Fourdrinier Operator Relationship Specialty Start Date End Date Breann Vitale PA [address] [place] [address] PCP - General PHYSICIAN MECHANICAL CAD DRAFTER 04/11/18 documented as of this encounter
--- OUTSIDE RECORDS SUMMARY | 2025-06-03 11:46 | XMS_ITS | Encounter Summary ---
Author Organization [facility] Address [facility] [place] [address] Care Team Providers Care Game Trapper Name Role Phone Breann Vitale Primary Care Provider [phone] Encounter Details Date Type Department Care Team (Late st Contact Info) Description 12/20/2011 Abstract [facility] Clinics Conversion Md, Generic ConversionMD Social [...] st Contact Info) Description 06/24/2025 10:00 AM ABALONE DIVER Office Visit [facility] Orthopedic & Sports [facility] [address] [place] [address] Fahad Brice MD [address] [place] [address] 09/23/2025 10:00 AM CDT Office Visit [facility] Orth[facility] Sports [facility] [address] [place] [address] Fahad Brice MD [address] [place] [address] documented as of this encounter Visit Diagnoses Not on filedocumented in this encounter Additional Health Concerns Infection Onset Date Last Indicated Resolved Time COVID-19 Rule Out 12/08/2019 12/08/2019 12/09/2019 9:53 PM CDT Respiratory Rule Out 03/06/2025 03/06/2025 025 1:21 PM CDT documented as of this encounter Care Teams Game Trapper Relationship Specialty Start Date End Date Breann Vitale PA [address] [place] [address] PCP - General PHYSICIAN LONGWALL SHEARER OPERATOR 04/11/18 documented as of this encounter
--- OUTSIDE RECORDS SUMMARY | 2025-06-03 11:46 | XMS_ITS | Encounter Summary ---
Author Organization [facility] Address [facility] [place] [address] Care Team Providers Care Retail Field Merchandiser Name Role Phone Breann Vitale Primary Care Provider [phone] Encounter Details Date Type Department Care Team (Late st Contact Info) Description 11/19/2011 Abstract [facility] Clinics Conversion Md, Generic ConversionMD Social [...] st Contact Info) Description 06/24/2025 10:00 AM BOTTLE SELECTOR Office Visit [facility] Orthopedic & Sports Medicine [facility] [address] [place] [address] Fahad Brice MD [address] [place] [address] 09/23/2025 10:00 AM CDT Office Visit [facility] Orthopedic & Sports Medicine [facility] [address] [place] [address] Fahad Brice MD [address] [place] [address] documented as of this encounter Visit Diagnoses Not on filedocumented in this encounter Additional Health Concerns Infection Onset Date Last Indicated Resolved Time COVID-19 Rule Out 12/08/2019 12/08/2019 12/09/2019 9:53 PM CDT Respiratory Rule Out 03/06/2025 03/06/2025 025 1:21 PM CDT documented as of this encounter Care Teams Retail Field Merchandiser Relationship Specialty Start Date End Date Breann Vitale PA [address] [place] [address] PCP - General PHYSICIAN DIAGNOSTIC TECH 04/11/18 documented as of this encounter
--- OUTSIDE RECORDS SUMMARY | 2025-06-03 11:46 | XMS_ITS | Clinical Summary ---
Author Organization [facility] Address [facility] [place] [address] Care Team Providers Care Lay Ups Assembler Name Role Phone Breann Parra Primary Care Provider [phone] Allergies Active Allergy Reactions Criticality Noted Date Comments Amoxicillin Rash Low 03/09/2016 Patient states long time ago, able to tolerate other antibiotics. Tape Hives 04/21/2020 States more with surgical wound tape Can use paper tape tegaderm okay Medications latanoprost 0.005 % ophthalmic solutionIndication s:Eye Disorder and/or Vision Disorder Place 1 drop into both eyes nightly at bedtime. Indications: Disease of the Eye and/or Vision 8 Active vitamin C (ASCORBIC ACID) 500 MG tabletIndications: Vitamin and/or Mineral Deficiency Take 1 tablet (500 mg total) by mouth daily. Indications: Vitamin and/or Mineral Deficiency 6 Active ALL DAY ALLERGY 10 MG tabletIndications: Allergy Take 1 tablet (10 mg total) by mouth as needed. Indications: Allergy 1 8 Active Misc Natural Products (JOINT SUPPORT) Cap Take by mouth daily. 6 Active [place] 3-6-9 Fatty Acids (OMEGA 3-6-9 COMPLEX OR)Indications:Vit hernandez and/or Mineral Deficiency Take 1 tablet by mouth daily. Indications: Vitamin and/or Mineral Deficiency 0 Active Cholecalciferol (VITAMIN D3) 50 MCG (1999 UT) TabIndications:Vit hernandez and/or Mineral Deficiency Take 1 tablet (50 mcg total) by mouth daily. Indications: Vitamin and/or Mineral Deficiency 0 Active calcium-vitamin D-vitamin K (VIACTIV) 500-500-40 MG-UNT-MCG Chew Tab Chew 1 tablet by mouth daily. Active ferrous gluconate (FERGON) 324 (37.5 Fe) MG tablet Take 1 tablet (324 mg total) by mouth daily with breakfast. Active Glucosamine-Chondr oitin 750-600 MG Chew Tab Chew by mouth daily. Active Methylcobalamin 500 MCG Chew Tab Chew by mouth daily. Active atenolol (TENORMIN) 25 MG tabletIndications: Essential hypertension Take 1 tablet by mouth once daily 90 tablet 5 Active celecoxib (CELEBREX) 200 MG capsuleIndications :Left hip pain,Chronic left-sided low back pain, unspecified whether sciatica present Take 1 capsule (200 mg total) by mouth daily. 90 capsule 1 5 026 Active rosuvastatin (CRESTOR) 5 MG tabletIndications: Hyperlipidemia, unspecified hyperlipidemia type TAKE 1 TABLET BY MOUTH NIGHTLY AT BEDTIME 90 tablet 5 Active Active Problems Problem Noted Date Diagnosed Date Chills 03/06/2025 Overview (03/06/2025): - current symptoms likely represent a viral illness - FLU, COVID, strep throat all negative today in clinic - encouraged supportive measures - encouraged hydration Assessment & Plan (03/06/2025 1:30 PM CDT): - current symptoms likely represent a viral illness - FLU, COVID, strep throat all negative today in clinic - encouraged supportive measures - encouraged hydration Chronic left hip pain 03/04/2025 Lumbar radiculopathy 03/04/2025 Lumbar facet arthropathy 06/13/2024 Lateral pain of hip 03/21/2024 Chronic left SI joint pain 03/21/2024 Left leg pain 03/21/2024 Diverticulosis of colon 03/07/2024 Internal hemorrhoids without complication 2023 Primary osteoarthritis of right knee 01/18/2023 Primary osteoarthritis of left knee 01/18/2023 Chronic pain of both knees 01/18/2023 S/P reverse total shoulder arthroplasty, right 0 09/30/2022 Rotator cuff arthropathy of right shoulder 09/21 Open-angle glaucoma of both eyes 11/26/2021 S/P hardware removal 04/10/2021 Acute right hip pain 03/19/2020 History of lumbar fusion 03/19/2020 Sacroiliitis 02/18/2020 DVT, lower extremity, distal, acute, left 2019 Overview (01/21/2020): postoperative History of lumbar laminectomy 12/14/2019 Lumbar radiculopathy 10/16/2019 Overview (10/16/2019): Added automatically from request for surgery [id number] Essential hypertension 10/04/2019 Greater trochanteric bursitis, left 12/27/2018 Disorder of bursae and tendons in shoulder regio n 10/15/2015 Hyperlipidemia 06/15/2013 Abnormal liver function tests 06/05/2012 Osteopenia Resolved Problems Problem Noted Date Diagnosed Date Resolved Date Encounter for screening colonoscopy 03/05/2024 03/12/2024 Pain from implanted hardware , initial encounter 05/16/2020 04/10/2021 S/P lumbar discectomy 04/16/20202020 Radiculopathy, lumbar region 03/19/2020 04/10/2021 Lumbar spine instability 12/14/201910/2020 S/P lumbar fusion 12/12/2019 04/16/2020 S/P lumbar and lumbosacral f usion by anterior technique 12/12/2019 04/10/2021 Other intervertebral disc de generation, lumbar region 11/02/2019 04/10/2021 Lumbar disc herniation 11/02/201904/10 Spinal stenosis of lumbar re gion without neurogenic claudication 11/02/2019 04/10/2021 Foraminal stenosis of lumbar region 11/02/2019 04/10/2021 Encounters Date Type Department Care Team Description 04/30/2025 Results Follow[facility]Up [facility] [address] [place] [phone] Breann Parra, PA COMPREHENSIVE METABOLIC PANEL, LIPID PANEL, TSH W/REFLEX, THYROXINE, FREE (FT4) 04/29/2025 8:20 AM SECURITY CONTROL ASSESSOR - 04/29/2025 11:59 PM SECURITY CONTROL ASSESSOR [facility] [address] [place] [address] Breann Parra, PA Discharge Disposition: Home or Self Care (Routine Discharge) 04/29/2025 Travel 04/23/2025 Telephone [facility] [address] [place] [phone] Breann Parra, PA Follow Up Call 04/23/2025 Telephone [facility] Orthopedic & Sports Medicine [address] [address] Deshawn Vargas MD Information 04/17/2025 9:00 AM SECURITY CONTROL ASSESSOR Office Visit [address] [phone] Breann Parra, PA Follow Up (6 months) 04/17/2025 Telephone [facility] [address] [place] [address] Loli Vanegas, PT Follow Up Call 04/17/2025 Travel 04/08/2025 Scan Inveni SRVCS Scanned, Doc [facility] 04/05/2025 9:39 AM CDT - 04/05/2025 11:59 PM CDT Hospital Encounter [facility] [address] [place] [address] Breann Parra, PA Hermila Jones R, WINDOW TINTER Lumbar Radiculopathy; Hip Pain (02/13) Discharge Disposition: Home or Self Care (Routine Discharge) 04/05/2025 Travel 04/01/2025 9:37 AM CDT - 04/01/2025 11:59 PM CDT Hospital Encounter [facility] [address] [place] [address] Loli Vanegas, PT Breann Parra, PA Lumbar Radiculopathy (01/13); Hip Pain (01/13) Discharge Disposition: Home or Self Care (Routine Discharge) 04/01/2025 Travel 03/29/2025 10:25 AM CDT - 03/29/2025 11:59 PM CDT Hospital Encounter [facility] [address] [place] [address] Breann Parra, PA Karen, Hermila R, WINDOW TINTER Lumbar Radiculopathy; Hip Pain (12/13) Discharge Disposition: Home or Self Care (Routine Discharge) 03/29/2025 Travel 03/25/2025 10:55 AM CDT - 03/25/2025 11:59 PM CDT Hospital Encounter [facility] [address] [place] [address] Loli Vanegas, PT Breann Parra, PA Lumbar Radiculopathy (11/13); Hip Pain (11/13) Discharge Disposition: Home or Self Care (Routine Discharge) 03/25/2025 Travel 03/25/[address] [phone] Breann Parra, PA Question; FYI 03/22/2025 9:42 AM CDT - 03/22/2025 11:59 PM CDT Hospital Encounter [facility] [address] [place] [address] Breann Parra, PA Karen, Hermila R, WINDOW TINTER Hip Pain; Lumbar Radiculopathy (10/13) Discharge Disposition: Home or Self Care (Routine Discharge) 03/22/2025 Travel 03/21/2025 11:20 AM CDT Office Visit [facility] Medical Group Orthopedic & Sports Medicine [facility] [address] [place] [address] Fahad Brice MD Knee Pain (Lt knee ) 03/21/2025 Travel 03/18/2025 9:04 AM CDT - 03/18/2025 11:59 PM CDT Hospital Encounter [facility] [address] [place] [address] Loli Vanegas, PT Breann Parra, PA Hip Pain (4/10); Lumbar Radiculopathy (4/10) Discharge Disposition: Home or Self Care (Routine Discharge) 03/18/2025 Travel 03/15/2025 8:38 AM CDT - 03/15/2025 11:59 PM CDT Hospital Encounter [facility] [address] [place] [address] Breann Parra, PA Hermila Jones R, WINDOW TINTER Hip Pain; Lumbar Radiculopathy (3/10) Discharge Disposition: Home or Self Care (Routine Discharge) 03/15/2025 Telephone [facility] [address] [place] [phone] Breann Parra PA Follow Up Call (BP) 03/15/2025 Travel 03/13/2025 8:39 AM CDT - 03/13/2025 11:59 PM CDT Hospital Encounter [facility] [address] [place] [address] Loli Vanegas L, PT Breann Parra, JAYNA Hip Pain (2/10); Lumbar Radiculopathy (2/10) Discharge Disposition: Home or Self Care (Routine Discharge) 03/13/2025 Travel 03/07/2025 Telephone [facility] [address] [place] [phone] Breann Parra PA Follow Up Call (BP) 03/06/2025 1:00 PM CDT Office Visit [facility] [address] [place] [address] [place], Diarrhea (Headache, diarrhea and chills since yesterday /) 03/06/2025 Travel 03/05/2025 Footbalist[facility] Message Enc [facility] [address] [place] [phone] Brenan Parra PA Diarrea 03/04/2025 8:12 AM CDT - 03/04/2025 11:59 PM CDT Hospital Encounter [facility] [address] [place] [address] Loli Vanegas, PT Breann Parra, PA Hip Pain (06/15); Lumbar Radiculopathy (06/15) Discharge Disposition: Home or Self Care (Routine Discharge) 03/04/2025 Travel from Last 3 Months Immunizations Immunization Administration Dates Next Due Fluzone High Dose (IIV, triv alent, 0.5mL) 04/17/2025 Fluzone High Dose - >Age 65 (Prefilled Syringe) 04/04/2023,03/03/2022,03/05/2021,2019,05/18/2018 Influenza Adult (Generic) 05/03/2017,12/2015,04/06/2015,2013,03/28/2012,04/05/2008 MODERNA COVID-19 (12+) MRNA, LNP-S, PF, 100 MCG/ 0.5 ML DOSE 08/06/2020,07/09/2020 MODERNA COVID-19 (RETAIL CLIENT MANAGER FIDENCIO VICKI), MRNA, LNP-S, PF, 50 MCG/ 0.25 ML DOSE 07/26/2022,05/14/2021 Pneumococcal (Pneumovax 23) 01/17/2013 Pneumococcal (Prevnar 13) 04/21/2015 Shingrix 04/20/2019,01/15/2019 Tdap (Generic) 07/26/2022,09/02/2011 Zoster (Zostavax) [address] Unt/0.65Ml 03/28/2012 Family History Medical History Relation Comments Glaucoma Brother Heart Disease Brother Hypertension Brother Cancer Father lung Heart Disease Father Hypertension Father [place] Father Breast Cancer Mother mets to lung Cancer Mother Breast Cancer Osteoporosis Other Diabetes Paternal Grandmother Glaucoma Sister Hypertension Sister Hyperlipidemia Son Relation Status Comments Brother Father (Age 80) cancer Mother (Age 55) breast Other Alive Paternal Grandmother Sister Son Alive Social History Tobacco Use Types Packs/Day Years Used Date Smoking Tobacco: Never Passive Smoke Exposure: Never Smokeless Tobacco: Never Tobacco Cessation:Counseling Given: No Comments:Never Smoked Alcohol Use Standard Drinks/Week Comments [...] Orientation Straight 10/27/2020 4: 20 PM CDT Last Filed Vital Signs Vital Sign Reading Time Taken Comments Blood Pressure 126/65 04/17/2025 9:04 AM SECURITY CONTROL ASSESSOR Pulse 58 04/17/2025 9:04 AM SECURITY CONTROL ASSESSOR Temperature 37.1 C (98.8 F) 04/17/2025 9:04 AM SECURITY CONTROL ASSESSOR Respiratory Rate 18 04/17/2025 9:04 AM SECURITY CONTROL ASSESSOR Oxygen Saturation 100% 04/17/2025 9:04 AM SECURITY CONTROL ASSESSOR Inhaled Oxygen Concentration - - Weight 71.4 kg (157 lb 8 oz) 04/17/2025 9:04 AM SECURITY CONTROL ASSESSOR Height 167.6 cm (5' 6) 04/17/2025 9:04 AM SECURITY CONTROL ASSESSOR Body Mass Index 25.42 04/17/2025 9:04 AM SECURITY CONTROL ASSESSOR Plan of Treatment Upcoming Encounters Date Type Department Care Team (Late st Contact Info) Description 06/24/2025 10:00 AM SECURITY CONTROL ASSESSOR Office Visit [facility] Medical [facility] Orthopedic & Sports Medicine [facility] [address] [place] [address] Fahad Brice MD [address] [place] [address] 09/23/2025 10:00 AM CDT Office Visit [facility] Orthopedic & Sports Medicine [facility] [address] [place] [address] Fahad Brice MD [address] [place] [address] Health Maintenance Due Date Last Done Comments Hepatitis C 12/09/1963 Annual Medicare Wellness Visit 12/09/2012 RSV Immunization or 60+ Years (1 - 1-dose 75+ series) 12/09/2022 COVID-19 Vaccine ( - 2024- season) 2025 03/31/2023, 07/26/2022, 05/14/2021, Additional history exists DTaP, Tdap and Td Vaccines (3 - Td or Tdap) 07/26/2032 07/26/2022, 09/02/2011 Pneumococcal Vaccine: 50+ Years Completed 04/21/2015, 01/17/2013 Zoster Vaccines Completed 04/20/2019, 01/04, 03/28/2012 Colorectal Cancer Screening Colonoscopy (10 Years) Discontinued 03/07/2024 Dexa Scan (General) Completed 10/30/2024, 08/13/2022, 11/29/2019 PHQ-2 (Physician Carlock) Completed 03/06/2025 Influenza Adult Completed 04/17/2025, 03/08, 03/03/2022, Additional history exists Hepatitis A Vaccines Aged Out No long er eligible based on patient's age to complete this topic Meningococcal B Vaccine Aged Out No l onger eligible based on patient's age to complete this topic Meningococcal Vaccine Aged Out No niru alley eligible based on patient's age to complete this topic RSV Immunizations Under 20 Months Aged Out No longer eligible based on patient's age to complete this topic Goals Goal Patient Goal Type Associated Problems Recent Progress Patient-Stated? Author Safety - demonstrates understanding of home safety measures General No Carlie Marte RN Medical Devices Implanted Type Area Cloth Sponger Device Identifier Shelf Expiration Date Model / Serial / Lot Cement Full Dose - [id number] Implanted:Qty: 1 on 10/04/2022 by Jerome Macdonald MD at [facility] Cement Implant Right: Shoulder [employer] - DIV BRIGID DAVE [id number] 12/03/2024 6191-1-001 / / [id number] Cement Bone Tobramycin Simplex - [id number] Implanted:Qty: 1 on 10/04/2022 by Jerome Macdonald MD at [facility] Cement Implant Right: Shoulder [employer] DAVE [id number] 01/04/2024 6197-9-010 / / [id number] Lead Metronic Nervestimulator 5mm 1 X 8 - [id number] Implanted:Qty: 1 on 01/30/2025 by Genesis Alvarado MD at [facility] Lead Implant [employer] 10/11/2028 [id number] / / [id number] Lead Metronic Nervestimulator 5mm 1 X 8 - [id number] Implanted:Qty: 1 on 01/30/2025 by Genesis Alvarado MD at [facility] Lead Implant [employer] 10/11/2028 [id number] / / [id number] Tornier Perform Reversed Augmented Glenoid Lateralized Baseplate Implanted:Qty: 1 on 10/04/2022 by Jerome Macdonald MD at [facility] Plate Right: Shoulder [employer] - DIV [employer] DAVE [id number] 08/03/2027 [id number] / [id number] / 6.5mm Center Screw Implanted:Qty: 1 on 10/04/2022 by Jerome Macdonald MD at [facility] Screw Right: Shoulder [employer] - DIV BRIGID DAVE [id number] / / 5.0mm Peripheral Screw Implanted:Qty: 1 on 10/04/2022 by Jerome Macdonald MD at [facility] Shoulder Components Right: Shoulder [employer] [id number] / / 5.0mm Peripheral Screw Implanted:Qty: 1 on 10/04/2022 by Jerome Macdonald MD at [facility] Shoulder Components Right: Shoulder [employer] [id number] / / 5.0mm Peripheral Screw Implanted:Qty: 1 on 10/04/2022 by Jerome Macdonald MD at [facility] Shoulder Components Right: Shoulder [employer] [id number] / / Tornier Perform Reversed Cannulated Cocr Lateralized Glenosphere Implanted:Qty: 1 on 10/04/2022 by Jerome Macdonald MD at [facility] Shoulder Components Right: Shoulder [employer] DAVE [id number] 08/27/2026 [id number] / [id number] / Anatoliy Perform Humeral System Humeral Stem Plus Long Implanted:Qty: 1 on 10/04/2022 by Jerome Macdonald MD at [facility] Shoulder Components Right: Shoulder [employer] - DIV BR[employer] DAVE 07/01/2027 [id number] / [id number] / Anatoliy Perform Humeral System Retentive Reversed Insert Implanted:Qty: 1 on 10/04/2022 by Jerome Macdonald MD at [facility] Shoulder Components Right: Shoulder [employer] [id number] 03/05/2027 [id number] / [id number] / Restrictor Cement Latitude 8-15mm Elbow Restrictor - [id number] Implanted:Qty: 1 on 10/04/2022 by Jerome Macdonald MD at [facility] Spacer Right: Shoulder [employer] [id number] 10/22/2026 [id number] / [id number] / Graft Bone Infuse Medtronic Large Kit - [id number] Implanted:Qty: 1 on 12/11/2019 by Etienne Wolf MD at [facility] N/A: Spine Lumbar [employer] 12/04/2020 [id number] / / [id number] Divergence- L Anterior/Oblique Lumbar Fusion Interbody Implanted:Qty: 1 on 12/11/2019 by Etienne Wolf MD at [facility] N/A: Spine Lumbar [employer] 08/19/2023 [id number] / / [id number] Description:S1 Plate Pyramid 37mm 4 Hole Prmd Bone Spine - [id number] Implanted:Qty: 1 on 12/11/2019 by Etienne Wolf MD at [facility] N/A: Spine Lumbar [employer] [id number] / / Medtronic Pyramid 6.5 X 35mm Screws Implanted:Qty: 4 on 12/11/2019 by Etienne Wolf MD at [facility] N/A: Spine Lumbar [employer] [id number] / / Explanted Type Area Cloth Sponger Device Identifier Shelf Expiration Date Model / Serial / Lot Bur Drill Neuro Harlan 3.0mm X 3.8mm - [id number] Explanted:Qty: 1 on 03/31/2021 by Paco Tariq MD at [facility] Drill N/A: Spine Lumbar [employer] - DIV BRIGID DAVE [id number] / / Nitinol Guidewires Explanted:Qty: 2 on 12/11/2019 by Etienne Wolf MD at [facility] N/A: Spine Lumbar [employer] [id number] / / Voyager Screw Implanted:Qty: 2 on 12/11/2019 by Etienne Wolf MD at [facility] Explanted:Qty: 2 on 03/31/2021 by Paco Tariq MD at [facility] N/A: Spine Lumbar [employer] [id number] / / Voyager Cody Implanted:Qty: 1 on 12/11/2019 by Etienne Wolf MD at [facility] Explanted:Qty: 1 on 03/31/2021 by Paco Tariq MD at [facility] N/A: Spine Lumbar [employer] [id number] / / Voyager Set Screws Implanted:Qty: 2 on 12/11/2019 by [facility] Explanted:Qty: 2 on 03/31/2021 by Paco Tariq MD at [facility] N/A: Spine Lumbar [employer] [id number] / / Procedures Procedure Name Priority Date/Time Associated Diagnosis Comments THYROXINE, FREE (FT4) Routine 04/29/2025 8:27 AM SECURITY CONTROL ASSESSOR TSH W/REFLEX Routine 04/29/2025 8:27 AM SECURITY CONTROL ASSESSOR Primary hypertension LIPID PANEL Routine 04/29/2025 8:27 AM SECURITY CONTROL ASSESSOR Hyperlipidemia, unspecified hyperlipidemia type COMPREHENSIVE METABOLIC PANEL Routine 04/29/2025 8:27 AM SECURITY CONTROL ASSESSOR Function kidney decreased ARTHROCENTESIS MAJOR JOINT W/ ULTRASOUND GUIDANCE Routine 03/21/2025 11:20 AM CDT Localized osteoarthritis of left knee Osteoarthrosis, localized, primary, knee, right OUS GUIDE NEEDLE PLCMT ORTHO Routine 03/21/2025 11:17 AM CDT Localized osteoarthritis of left knee CORONAVIRUS (COVID-19) INFLUENZA A & B ANTIGEN IA PANEL Routine 03/06/2025 Chills STREP A ASSAY W/OPTIC Routine 03/06/2025 Chills BONE DENSITY/DEXA Routine 10/30/2024 3:1 2 PM CDT Menopause from Last 3 Months or Most Recently Relevant to Health Maintenance Results * THYROXINE, FREE (FT4) (04/29/2025 8:27 AM SECURITY CONTROL ASSESSOR) FREE T4 0.96 0.76 - 1.46 NG/DL 04/29/2025 9:33 AM SECURITY CONTROL ASSESSOR [facility] 04/29/2025 8:27 AM SECURITY CONTROL ASSESSOR [facility] Final Result [facility] [address] [place] [id number], * LIPID PANEL (04/29/2025 8:27 AM [facility]) CHOLESTEROL 148 <200 MG/DL 04/29/2025 9:13 AM [facility] TRIGLYCERIDES 89 <150 MG/DL 04/29/2025 9:13 AM [facility] HDL 61 >40.0 MG/DL 04/29/2025 9:13 AM [facility] LDL (CALCULATED) 69 <100 MG/DL 04/29/20 9:13 AM [facility] Comment:CALCULATED USING THE FRIEDEWALD EQUATION NON HDL CHOLESTEROL 87 <130 MG/DL 04/29 9:13 AM [facility] Comment: NOTE: WHEN THE TRIGLYCERIDES ARE >200 mg/dL, NON HDL C IS A SECONDARY TARGET OF THERAPY, WITH A GOAL 30 mg/dL HIGHER THAN THE IDENTIFIED LDL C GOAL. CHOL/HDL RATIO 2.4 0.0 - 4.5 04/29/2025 9:13 AM [facility] VLDL CALCULATION 18 5 - 55 MG/DL 04/29/2025 9:13 AM [facility] LIPID INTERPRETATION 04/29/2025 9:13 AM [facility] Comment: NIH CONCENSUS REPORT RECOMMENDATIONS: ADULT CHILD LOW RISK: CHOLESTEROL <200 <170 TRIGLYCERIDE <150 --- HDL >=60 --- LDL <100 <110 BORDERLINE: CHOLESTEROL 200-239 170-199 TRIGLYCERIDE 150-199 --- HDL 40-59 --- LDL 100-159 110-129 HIGH RISK: CHOLESTEROL >=240 >=200 TRIGLYCERIDE >=200 --- HDL <40 --- LDL >=160 >=130 BLOOD VENOUS BLOOD SPECIMEN / Unknown 04/29/2025 8:27 AM SECURITY CONTROL ASSESSOR [facility] Final Result [facility] [address] [id number], * (ABNORMAL) COMPREHENSIVE METABOLIC PANEL (04/29/2025 8:27 AM SECURITY CONTROL ASSESSOR) GLUCOSE 99 70 - 99 MG/DL 04/29/2025 9:13 AM [facility] BUN 24(H) 7 - 18 MG/DL 04/29/2025 9:13 AM [facility] CREATININE S/P/B 1.10(H) 0.55 - 1.02 MG/DL 04/29/2025 9:13 AM [facility] SODIUM S/P/B 141 136 - 145 MMOL/L 04/29/2025 9:13 AM [facility] POTASSIUM S/P/B 4.0 3.5 - 5.1 MMOL/L 04/29/2025 9:13 AM [facility] CHLORIDE S/P/B 104 100 - 108 MMOL/L 04/29/2025 9:13 AM [facility] CO2 30.9 21 - 32 MMOL/L 04/29/2025 9:13 AM [facility] CALCIUM S/P/B 8.8 8.5 - 10.1 MG/DL 04/29/2025 9:13 AM [facility] BILIRUBIN TOTAL S/P/B 0.4 0.2 - 1.2 MG/DL 04/29/2025 9:13 AM [facility] Comment: THIS ASSAY IS NOT RECOMMENDED FOR PATIENTS UNDERGOING TREATMENT WITH ELTROMBOPAG DUE TO THE POTENTIAL FOR FALSELY ELEVATED RESULTS. TOTAL PROTEIN S/P/B 7.1 6.4 - 8.2 G/DL 04/29/2025 9:13 AM [facility] ALBUMIN S/P/B 3.4 3.4 - 5.0 G/DL 04/29/2025 9:13 AM [facility] AST 42(H) 15 - 37 U/L 04/29/2025 9:13 AM [facility] ALT 48 14 - 55 U/L 04/29/2025 9:13 AM [facility] ALKALINE PHOSPHATASE S/P/B 101 50 - 136 U/L 04/29/2025 9:13 AM [facility] ANION GAP 6.1 5 - 15 MMOL/L 04/29/2025 9:13 AM [facility] BUN CREATININE RATIO 21.8 6 - 26 04/29/2025 9:13 AM [facility] A/G RATIO 0.9(L) 1.0 - 2.0 RATIO 04/29/2025 9:13 AM [facility] GFR ESTIMATE 52(L) >90 ML/MIN/1.7 3 M2 04/29/2025 9:13 AM [facility] Comment: NOTE: eGFR is not calculated for patients <18 years of age. This is an estimated GFR calculation using the new CKD EPI creatinine equation without race and so does not require a correction factor for race. This estimated GFR should not be used for calculating drug doses. 04/29/2025 8:27 AM SECURITY CONTROL ASSESSOR [facility] Final Result [facility] [address] [place] [address], * (ABNORMAL) TSH W/REFLEX (04/29/2025 8:27 AM SECURITY CONTROL ASSESSOR) TSH 4.223(H) 0.358 - 3.74 uIU/ML 04/29/2025 9:13 AM SECURITY CONTROL ASSESSOR [facility] Comment: HIGH DOSES OF BIOTIN MAY INTERFERE WITH THIS TEST RESULT. CORRELATION TO CLINICAL HISTORY AND PRESENTATION RECOMMENDED. BLOOD VENOUS BLOOD SPECIMEN / Unknown 04/29/2025 8:27 AM SECURITY CONTROL ASSESSOR [facility] Final Result [facility] [address] [place] [address], [place] [phone] * ARTHROCENTESIS MAJOR JOINT W/ ULTRASOUND GUIDANCE (03/21/2025 11:20 AM CDT) Narrative Fahad Brice MD - 03/21/2025 11:20 AM CDT Fahad Brice MD 03/21/2025 12:22 PM *Lg Jt Arthrocentesis: bilateral knee Durolane injection on 03/21/2025 11:20 AM Indications: pain Details: 22 G needle, ultrasound-guided lateral approach Medications (Right): (3 mL Durolane injected in the knee after local anesthesia with 3 cc 2% lidocaine) Medications (Left): (3 mL Durolane injected in the knee after local anesthesia with 3 cc 2% lidocaine) Outcome: tolerated well, no immediate complications Procedure, treatment alternatives, risks and benefits explained, specific risks discussed. Consent was given by the patient. Patient was prepped and draped in the usual sterile fashion. Fahad Brice MD PROCEDURE/MINOR SURGICAL ORDERA BLES Final Result * OUS GUIDE NEEDLE PLCMT ORTHO (03/21/2025 11:17 AM CDT) Anatomical Region Laterality Modality Ultrasound 03/21/2025 10:1 5 AM CDT Narrative 03/21/2025 10:15 AM CDT This report does not contain a radiologist's interpretation. Please review associated procedure and/or operative report. Procedure Note Darwin Mcdonnell MD - 03/21/2025 This report does not contain a radiologist's interpretation. Please review associated procedure and/or operative report. Fahad Brice MD ULTRASOUND Final Result * CORONAVIRUS (COVID-19) INFLUENZA A & B ANTIGEN IA PANEL (03/06/2025) CORONAVIRUS ANTIGEN IA NEGATIVE NEGATIVE MG-NA[facility]DI[facility] AWA (9401), JAY INFLUENZA A NEGATIVE NEGATIVE MG-[facility] [employer] AWA (9401), JAY INFLUENZA B NEGATIVE NEGATIVE MG-[facility] [employer] AWA (9401), JAY Internal Control: VALID VALID MG-[facility] [employer] AWA (9401), JAY NASAL STRUCTURE / Unknown 03/06/2025 [facility] MICROBIOLOGY - GENERAL ORD ERABLES Final Result YANDY WOODS AWA (9401), JAY [address] [facility] [address] [place] [address], [place] [phone] * STREP A RAPID (03/06/2025) RAPID STREP TEST NEGATIVE NEGATIVE MG-[facility] AWA (9401), JAY Internal Control: VALID VALID MG-[facility] [employer] AWA (9401), JAY STRUCTURE OF ANTERIOR REGION OF NECK / Unknown 03/06/2025 [facility] MICROBIOLOGY - GENERAL ORD ERABLES Final Result YANDY BILLINGS (9401), COLSTRIP [address] [facility] [address] [place] [address], [place] [phone] * BONE DENSITY/DEXA (10/30/2024 3:12 PM CDT) Anatomical Region Laterality Modality Bone Bone Density 10/30/2024 11:5 2 PM CDT Addenda Addendum by Vasiliy Peters MD on 10/30/2024 11:56 PM CDT [facility] [address] [place] [address] There is been 6.2% interval decrease in bone mineral density of the left hip from 08/10/2022 comparison DEXA scan. Referred By: BREANN PARRA Interpreted By: Vasiliy Peters MD, 10/30/2024 11:54 PM Impressions 10/30/2024 11:53 PM CDT IMPRESSION: WHO Classification: Osteopenia RECOMMENDATIONS: All patients should ensure an adequate intake of dietary calcium and vitamin D. The NOF recommend adults under the age of 50 need 1000 mg of calcium and 400-800 IU of vitamin D daily. Effective therapy for the prevention and treatment of osteoporosis include bisphosphonates. Follow-up: People with diagnosed cases of osteoporosis or at high risk for fracture should have regular bone mineral density test. For patients eligible for Medicare, routine testing is allowed once every 2 years. Testing frequency can be increased to one year for patients who have rapidly progressing disease, those who are receiving or discontinuing medical therapy to restore bone mass, or have additional risk factors. Referred By: BREANN PARRA Interpreted By: Vasiliy Peters MD, 10/30/2024 11:52 PM Narrative 10/30/2024 11:53 PM CDT [facility] [address] [place] [address] EXAMINATION: BONE DENSITY/DEXA INDICATIONS: Menopause COMPARISON: 08/13/2022 DEXA scan TECHNIQUE: DEXA bone mineral density evaluation was performed in the AP projection over the lumbar spine and both hips utilizing standard imaging techniques. ASSESSMENT: The BMD measured at the distal third of right forearm is 0.618 g/cm? with a T- score of -1.3. The BMD measured at the left femoral neck is 0.755 g/cm? with a T-score of -0.8. The BMD measured at the left hip is 0.857 g/cm? with a T-score of -0.7. The BMD measured at the right femoral neck is 0.752 g/cm? with a T-score of - 0.9. The BMD measured at the right hip is 0.815 g/cm? with a T-score of -1.0. FRAX 10-year fracture risk: FRAX not reported because all T-scores for the hips are at or above -1.0. Procedure Note Vasiliy Peters MD - 10/30/2024 [facility] [address] [place] [address] EXAMINATION: BONE DENSITY/DEXA INDICATIONS: Menopause COMPARISON: 08/13/2022 DEXA scan TECHNIQUE: DEXA bone mineral density evaluation was performed in the APprojection over the lumbar spine and both hips utilizing standard imagingtechniques. ASSESSMENT: The BMD measured at the distal third of right forearm is 0.618 g/cm? witha T- score of -1.3. The BMD measured at the left femoral neck is 0.755 g/cm? with a T-score of-0.8. The BMD measured at the left hip is 0.857 g/cm? with a T-score of -0.7. The BMD measured at the right femoral neck is 0.752 g/cm? with a T-scoreof -0.9. The BMD measured at the right hip is 0.815 g/cm? with a T-score of -1.0. FRAX 10-year fracture risk: FRAX not reported because all T-scores for the hips are at or above-1.0. IMPRESSION: WHO Classification: Osteopenia RECOMMENDATIONS: All patients should ensure an adequate intake of dietary calcium andvitamin D. The NOF recommend adults under the age of 50 need 1000 mg ofcalcium and 400-800 IU of vitamin D daily. Effective therapy for theprevention and treatment of osteoporosis include bisphosphonates. Follow-up: People with diagnosed cases of osteoporosis or at high risk for fractureshould have regular bone mineral density test. For patients eligible forMedicare, routine testing is allowed once every 2 years. Testing frequencycan be increased to one year for patients who have rapidly progressingdisease, those who are receiving or discontinuing medical therapy torestore bone mass, or have additional risk factors. Referred By: BREANN PARRA Interpreted By: Vasiliy Peters MD, 10/30/2024 11:52 PM Breann WALLACE Edited Result - Final from Last 3 Months or Most Recently Relevant to Health Maintenance Insurance [facility] MEDICARE Advance Directives Documents on File Type Date Recorded Patient Computer Numerical Control Operator Expl anation Power of Beach Expert Advance Directives and Living Will 04/02/2021 10:53 AM 08/21/2015 signed POA for Health Care Advance Directives and Living Will 12/15/2019 2:34 PM 08/21/15 POA FOR HEAL TH CARE * Full Code (Latest Code Status on File) Date Activated Date Inactivated Comments 10/04/2022 6:14 PM 10/05/2022 1:30 PM * Full Code Date Activated Date Inactivated Comments 03/31/2021 2:38 PM 04/01/2021 4:52 PM * Full Code Date Activated Date Inactivated Comments 12/15/2019 1:37 PM 03/18/2020 12:45 PM * Full Code Date Activated Date Inactivated Comments 12/11/2019 5:10 PM 12/14/2019 4:22 PM Care Teams Lay Ups Assembler Relationship Specialty Start Date End Date Breann Parra PA [address] [id number] PCP - General PHYSICIAN DEAF AND HARD OF HEARING TEACHER 04/11/18
--- OUTSIDE RECORDS SUMMARY | 2025-06-03 11:46 | XMS_ITS | Encounter Summary ---
Author Organization [facility] Address [facility] [place] [address] Care Team Providers Care Farm Demonstrator Name Role Phone Breann Vitale Primary Care Provider [phone] Encounter Details Date Type Department Care Team (Late st Contact Info) Description 05/09/2023 [facility] [address] [place] [address] Breann Vitale PA [address] [place] [address] Diarrhea Social History Tobacco Use [...] encounter Progress Notes * JAYNA Mahmood - 05/16/2023 5:22 PM CST No - cancel the u/s. NICU * JAYNA Mahmood - 05/09/2023 12:54 PM CST Unfortunately, I haven't seen her yet for this. Can she make an appt to come in so I can try to figure this out. Thanks. NICU documented in this encounter Plan of Treatment Upcoming Encounters Date Type Department Care Team (Late st Contact Info) Description 06/24/2025 10:00 AM RN NICU Office Visit [facility] Orthopedic & Sports Medicine - [place] [place] [address] Fahad Brice MD [address] [place] [address] 09/23/2025 10:00 AM CDT Office Visit [facility] Orthopedic [facility] Medicine - [address] [place] [address] Fahad Brice MD [address] [place] [address] documented as of this encounter Goals Goal [...] documented as of this encounter Care Teams Farm Demonstrator Relationship Specialty Start Date End Date Breann Vitale PA [address] [facility] [place] [address] PCP - General PHYSICIAN TOYS AND GAMES HAND FINISHER 04/11/18 documented as of this encounter
--- OUTSIDE RECORDS SUMMARY | 2025-06-03 11:46 | XMS_ITS | Encounter Summary ---
Author Organization [facility] Address [address] [place] [id number] Care Team Providers Care Cardiovascular Tech Name Role Phone Breann Vitale Primary Care Provider [phone] Encounter Details Date Type Department Care Team (Late st Contact Info) Description 05/11/2023 [employer] Message [facility] Orthopedic & Sports Medicine - [place] [address] [facility] Provider MRI results Social History Tobacco Use Types Packs/Day Years [...] st Contact Info) Description 06/24/2025 10:00 AM CANDY PULLER Office Visit [facility] [address] [place] [address] Fahad Brice MD [address] [place] [address] 09/23/2025 10:00 AM CDT Office Visit [facility] [place] [address] [place] [address] Fahad Brice MD [address] [place] [address] documented as of this encounter Goals Goal Patient Goal Type Associated Problems Recent Progress Patient-Stated? Author Safety - demonstrates understanding of home safety measures General No Hohmeyer, Carlie M, RN documented as of this encounter Visit Diagnoses Not on filedocumented in this encounter Additional Health Concerns Infection Onset Date Last Indicated Resolved Time Respiratory Rule Out 03/06/2025 03/06/2025 025 1:21 PM CDT Assessment Noted Time PHQ-9 Depression Total Score: 0 01/15/20 21 2:20 PM CDT documented as of this encounter Care Teams Cardiovascular Tech Relationship Specialty Start Date End Date Breann Vitale PA [address] [place] [address] PCP - General PHYSICIAN DATAPOWER CONSULTANT 04/11/18 documented as of this encounter
[2025-06-03 11:51] LABS: Alanine Aminotransferase 51 U/L (6-35); Albumin Level 4.3 g/dL (3.5-5.1); Alkaline Phosphatase 122 U/L (38-126); Anion Gap 4 mmol/L (4-12); Aspartate Amino Transferase 61 U/L (14-36); Bilirubin,Total 0.5 mg/dL (0.2-1.3); Blood Urea Nitrogen 20 mg/dL (7-17); Calcium 10.1 mg/dL (8.4-10.2); Carbon Dioxide 32 mmol/L (22-30); Chloride 102 mmol/L (98-107); Estimated Glomerular Filt Rate 51; Glucose 79 mg/dL (65-110); Potassium 4.1 mmol/L (3.4-5.0); Sodium 138 mmol/L (137-145); Total Protein 7.9 g/dL (6.3-8.2)
== END 2025-06-03 11:01 | disposition home or self-care (01) ==
PROVIDERS: Visit Provider Anesthesiology Pain Medicine
DX: D64.9 Anemia, unspecified (principal); Z01.818 Encounter for other preprocedural examination; R94.31 Abnormal electrocardiogram [ECG] [EKG]
CPT/HCPCS: 36415; 71046; 80053; 85025; 93005